=== PATIENT | male | born 1930 | race Caucasian/White ===

== ENCOUNTER 2019-01-20 21:45 | Inpatient (IN) ==
[2019-01-20] MEDS ORDERED: Acetaminophen 325 MG TABLET PO PRN (23:09)
[2019-01-20] MEDS ORDERED: Ondansetron ODT 4 MG TAB.RAPDIS SL PRN (23:33)
[2019-01-21] MEDS ORDERED: Loratadine 10 MG TABLET PO SCH (09:00)
[2019-01-21] MEDS: cephALEXin 500 MG CAPSULE PO SCH ×2 (11:20→19:50)
[2019-01-21] MEDS: Sennosides/Docusate Sodium TABLET PO SCH ×2 (11:20→19:50)
[2019-01-21] MEDS: Gabapentin 300 MG CAPSULE PO SCH ×3 (11:20→19:50)
[2019-01-21] MEDS: Lactulose Oral Soln 20 GM/30 ML UDC PO SCH ×5 (11:20→19:56)
[2019-01-21] MEDS: Cyanocobalamin (B-12) 1,000 MCG TABLET PO SCH (11:20)
[2019-01-21] MEDS: Cholecalciferol (D-3) 1,000 UNIT TABLET PO SCH (11:20)
--- NOTE | 2019-01-21 18:36 | Internal Med History&Physical ---
Date of Encounter: 01/21/19 Time of Encounter: 18:05 Assessment and Plan (1) Compression fx, lumbar spine Current visit: No Status: Acute L2 and L4 compression fractures now status post kyphoplasty. Continue PT and OT intervention. Will give scheduled Tylenol 650 mg every 6 hours. Continue Lidoderm. Qualifiers: Encounter type: initial encounter Lumbar vertebra fracture level: L2 Fracture type: closed Qualified Code(s): S32.020A - Wedge compression fracture of second lumbar vertebra, initial encounter for closed fracture (2) Parkinsons disease Current visit: Yes Status: Acute PT and OT evaluation to be done. (3) Dementia Current visit: Yes Status: Suspected Suspected. MMSE will be done. Qualifiers: Dementia type: unspecified type Dementia behavioral disturbance: without behavioral disturbance Qualified Code(s): F03.90 - Unspecified dementia without behavioral disturbance (4) CAD (coronary artery disease) Current visit: No Status: Chronic Details unknown. Qualifiers: Coronary Disease-Associated Artery/Lesion type: [place] artery [place] vs. transplanted heart: [place] heart Associated angina: without angina Qualified Code(s): I25.10 - Atherosclerotic heart disease of [place] coronary artery without angina pectoris (5) Hypothyroidism Current visit: No Status: Chronic Check TSH in a.m. Qualifiers: Hypothyroidism type: unspecified Qualified Code(s): E03.9 - Hypothyroidism, unspecified (6) Anemia Current visit: No Status: Chronic Anemia testing will be done in a.m. Qualifiers: Anemia type: unspecified type Qualified Code(s): D64.9 - Anemia, unspecified Internal Medicine - H&P: HPI Chief complaint: Compression fractures with kyphoplasty, laminectomy Admitted From: Hospital to Hospital Transfer Plans for Post Hospital Care: Home History of present illness: Mr. Francis is a 88 year old male who was transferred from [facility] ER to [facility] January 14 after a fall home resulted in L2 and L4 compression fractures. He underwent kyphoplasty at [facility] as well as L3-4 laminectomy for severe lumbar stenosis causing neurogenic claudication. He was discharged to [facility] swing bed for ongoing rehabilitation therapy. He is a fair historian. He states he has had shoulder surgery in the past. He denies gout or other bone joint or muscle disorders. Past Med Surg Social Fam HX - Past Medical History Medical history: coronary artery disease, GERD, hyperlipidemia, myocardial infarction, thyroid disease, other Additional medical history: NEUROPATHY Psychiatric history: no psych history - Past Surgical History Surgical History: angioplasty/stent, orthopedic, other Additional surgical history: REPAIR "LOOSE VEIN IN HEART.", HIP REPAIR - Social History Smoking Status: Never smoker Smokeless Tobacco Status: No Alcohol use: none Drug use: none - Family History Mother Living Status: Hx Family Cardiac Disorders: No Father Living Status: Hx Family Cardiac Disorders: Yes Internal Medicine - H&P: Meds Clopidogrel [Plavix] 75 mg PO DAILY 11/16/17 [History] Atorvastatin Calcium [Lipitor] 20 mg PO QPM 07/10/18 [History] Cetirizine HCl [Zyrtec] 10 mg PO DAILY 07/10/18 [History] Ferrous Sulfate [Iron] 325 mg PO TID 07/10/18 [History] Gabapentin [Neurontin] 100 mg PO TID 07/10/18 [History] Levothyroxine [Synthroid] 112 mcg PO 0630 07/10/18 [History] Pantoprazole Sodium [Protonix] 40 mg PO DAILY 07/10/18 [History] Triamcinolone 1 appl TP AD PRN 07/10/18 [History] Acetaminophen [Tylenol] 650 mg PO Q6HR PRN 30 Days #90 tablet 07/15/18 [Rx] Lactulose 10 gm PO BID 30 Days #60 udc 07/15/18 [Rx] DULoxetine [Cymbalta] 20 mg PO DAILY 01/14/19 [History] Allergy/AdvReac Type Severity Reaction Status Date / Time No Known Allergies Allergy Verified 11/16/17 14:33 All Systems PM: A 10-system review of systems was performed and is negative for pertinent findings except as documented above in the HPI. Review of systems: Gen.: He states his weight has been stable for several months Cardiovascular: He reports MA in the past but does not remember details. He denies hypertension heart failure angina DVT or pulmonary embolus. Echocardiogram 07/11/2018 showed LVEF of 70%. No significant valvular abnormality was seen. Interventricular septum and posterior wall thickness measurements were 1.08 and 0.99 cm respectively. E/A ratio was 0.6. Respiratory: He states he smoked minimally in early adulthood. 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 Available records report history of GERD. : He denies hematuria dysuria or kidney stones Neurologic: He denies large distribution strokes or seizures. He has history of neuropathy not otherwise specified. He states he was recently told he has Parkinson's disease. Endocrine: He has hyperlipidemia. The chart reports diagnosis of "disease of thyroid gland" not otherwise specified. There is no known diabetes. Hematology/oncology: He was unaware he had anemia on labs at [facility]. He denies internal malignancies or other blood disorders. Psychiatric: He has feelings of anxiety depression but does not take medication for these. He denies other mental health diagnoses. [place] skeletal: As per history of present illness - Constitutional Vitals: Temp Pulse Resp BP Pulse Ox 98.3 F 80 17 139/85 96 01/21/19 08:26 01/21/19 08:26 01/21/19 08:26 01/21/19 08:26 01/21/19 08:26 Exam: Gen.: He is a well-developed well-nourished male resting in bed who appears in no acute distress. He complains of pain in his low back. HEENT: Head is atraumatic and normal cephalic. Eyes: EOMI. There is no scleral icterus. Mouth: Mucosa is moist. Neck: Supple and nontender. There is no thyromegaly or adenopathy noted. Heart: Regular with occasional ectopics. Lungs: A few scattered rhonchi are heard. No wheezes or inspiratory crackles are heard otherwise. Abdomen: There is a well-healed midline longitudinal abdominal scar. No masses or guarding are noted. Extremities: There is no cyanosis edema or clubbing noted. Dorsalis pedis and posttibial pulses are trace palpable bilaterally. He has he will protectors on bilaterally as well as Allevyn which I did not remove. 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 Neurologic: Mental status: He is talkative and a fair historian. He does not remember some details of his history. He states his age is 87. He does know his date of . Cranial nerves: Smile is symmetric. Forehead wrinkles bilaterally. Tongue protrudes midline. EOMI. Motor: There is no pronator drift. He has cogwheeling and rigidity on passive range of motion's of his arms and wrists. Cerebellar: Finger to nose is intact bilaterally. Skin: Warm and dry. He has surgical bandages over his lower midline spine which I did not remove.
[2019-01-21] MEDS: Acetaminophen 325 MG TABLET PO SCH (19:50)
[2019-01-22] MEDS: Acetaminophen 325 MG TABLET PO SCH ×5 (00:45→23:45)
[2019-01-22 05:35] LABS: Basophils # 0.1 K/mcL (0.0-0.2); Basophils % 1.1 %; Eosinophils # 0.4 K/mcL (0.0-0.6); Eosinophils % 4.9 %; Hematocrit 28.3 % (37.5-50.1); Hemoglobin 9.4 g/dL (12.9-16.9); Immature Granulocytes % 1.1 % (0-4); Lymphocytes # 1.3 K/mcL (0.6-4.6); Lymphocytes % 18.3 %; Mean Corpuscular HGB Conc 33.2 g/dL (31.6-35.5); Mean Corpuscular Hemoglobin 30.8 pg (28.0-33.3); Mean Corpuscular Volume 92.8 fL (83.0-100.0); Mean Platelet Volume 8.3 fL (9.4-12.4); Monocytes # 0.7 K/mcL (0.0-1.3); Monocytes % 9.8 %; Neutrophils # 4.7 K/mcL (1.6-8.9); Platelet Count 295 K/mcL (140-400); Red Blood Count 3.05 M/mcL (4.19-5.50); Red Cell Distribution Width 13.9 % (11.5-14.5); Segmented Neutrophils % 64.8 %
[2019-01-22 06:01] LABS: Alanine Aminotransferase 11 Units/L (7-52); Albumin 3.3 g/dL (3.5-5.7); Alkaline Phosphatase 50 Units/L (34-104); Aspartate Amino Transferase 18 Units/L (13-39); BUN/Creatinine Ratio 26 (6-26); Bilirubin,Total 0.8 mg/dL (0.3-1.0); Blood Urea Nitrogen 16 mg/dL (8-23); Calcium 8.4 mg/dL (8.6-10.3); Carbon Dioxide 30 mEq/L (23-29); Chloride 99 mEq/L (98-107); Globulin 3.3 g/dL (2.4-3.5); Glucose 123 mg/dL (70-105); Osmolality,Calculated 283 (280-300); Sodium 135 mEq/L (136-145); Total Protein 6.6 g/dL (6.4-8.9); eGFR For Non-African Americans > 60 (> 60)
[2019-01-22 06:27] LABS: Thyroid Stimulating Hormone 12.483 mcIU/mL (0.340-5.600)
[2019-01-22 09:45] LABS: % Iron Saturation 16 % (20-55); Iron 37 mcg/dL (65-175); Transferrin 165 mg/dL (203-362)
[2019-01-22] MEDS: Sennosides/Docusate Sodium TABLET PO SCH ×2 (09:55→21:24)
[2019-01-22] MEDS: Gabapentin 300 MG CAPSULE PO SCH ×3 (09:56→21:25)
[2019-01-22] MEDS: Cyanocobalamin (B-12) 1,000 MCG TABLET PO SCH (09:56)
[2019-01-22] MEDS: Cholecalciferol (D-3) 1,000 UNIT TABLET PO SCH (09:56)
[2019-01-22] MEDS: Lactulose Oral Soln 20 GM/30 ML UDC PO SCH ×3 (09:57→21:25)
[2019-01-22 10:03] LABS: Ferritin 496 ng/mL (20-250)
[2019-01-22] MEDS: cephALEXin 500 MG CAPSULE PO SCH ×2 (10:05→21:25)
[2019-01-22 10:08] LABS: Folate 9.7 ng/mL (3.0-16.0)
--- NOTE | 2019-01-22 12:09 | Internal Med Progress Note ---
Date of Encounter: 01/22/19 Time of Encounter: 12:00 - Assessment and plan (1) Compression fx, lumbar spine Current Visit: No Status: Inactive Assessment and plan: January 22. Continue scheduled Tylenol, Lidoderm, and therapy intervention. Qualifiers: Encounter type: initial encounter Lumbar vertebra fracture level: L2 Fracture type: closed Qualified Code(s): S32.020A - Wedge compression fracture of second lumbar vertebra, initial encounter for closed fracture (2) Parkinsons disease Current Visit: Yes Status: Acute Assessment and plan: January 22. PT and OT evaluations have been done. Continue to monitor. (3) Dementia Current Visit: Yes Status: Suspected Assessment and plan: January 22. Awaiting MMSE exam. Qualifiers: Dementia type: unspecified type Dementia behavioral disturbance: without behavioral disturbance Qualified Code(s): F03.90 - Unspecified dementia without behavioral disturbance (4) CAD (coronary artery disease) Current Visit: No Status: Chronic Assessment and plan: January 22. Details unknown. Appears clinically stable. Qualifiers: Coronary Disease-Associated Artery/Lesion type: [place] artery [place] vs. transplanted heart: [place] heart Associated angina: without angina Qualified Code(s): I25.10 - Atherosclerotic heart disease of [place] coronary artery without angina pectoris (5) Hypothyroidism Current Visit: No Status: Chronic Assessment and plan: January 22. TSH elevated at 12.483. Increase Synthroid to 150 g daily. Qualifiers: Hypothyroidism type: unspecified Qualified Code(s): E03.9 - Hypothyroidism, unspecified (6) Anemia Current Visit: No Status: Chronic Assessment and plan: January 22. Anemia testing showed iron 37, transferrin saturation 16%, transferrin 165, ferritin 496, B12 589, and folate 9.7. Start ferrous sulfate with ascorbic acid in a.m. Qualifiers: Anemia type: unspecified type Qualified Code(s): D64.9 - Anemia, unspecified (7) Hypokalemia Current Visit: Yes Status: Acute Assessment and plan: January 22. Potassium level 3.0. Supplemental potassium has been ordered. Etiology of hypokalemia not obvious. Continue to monitor. - Subjective Interval history: January 22. He has no new complaints. - Constitutional Vitals: Temp Pulse Resp BP Pulse Ox 98.0 F 70 18 139/77 98 01/22/19 07:14 01/22/19 07:14 01/22/19 07:14 01/22/19 07:14 01/22/19 07:14 Exam: He is sitting in a chair at bedside resting comfortably. His affect is bright and cheerful. He is generally appropriate in conversation and answers questions accurately. I reviewed his medications and lab results. Internal Medicine: Result - Labs CBC & Chem 7: 01/22/19 05:30 01/22/19 05:30 Labs: Short CBC 01/22/19 Range/Units 05:30 WBC 7.3 (4.3-11.1) K/mcL Hgb 9.4 L (12.9-16.9) g/dL Hct 28.3 L (37.5-50.1) % Plt Count 295 (140-400) K/mcL Neutrophils # 4.7 (1.6-8.9) K/mcL BMP 01/22/19 05:30 Sodium 135 L Potassium 3.0 L Chloride 99 Carbon Dioxide 30 H BUN 16 Creatinine 0.61 L Glucose 123 H Calcium 8.4 L Liver Function 01/22/19 Range/Units 05:30 Total Bilirubin 0.8 (0.3-1.0) mg/dL AST 18 (13-39) Units/L ALT 11 (7-52) Units/L Alkaline Phosphatase 50 (34-104) Units/L Albumin 3.3 L (3.5-5.7) g/dL Consult Discharge Plan - Plan Referrals: NONE,PCP [Primary Care Provider] - 1 week
[2019-01-23 05:36] LABS: Basophils # 0.1 K/mcL (0.0-0.2); Basophils % 0.9 %; Eosinophils # 0.6 K/mcL (0.0-0.6); Eosinophils % 8.1 %; Hematocrit 28.6 % (37.5-50.1); Hemoglobin 9.4 g/dL (12.9-16.9); Immature Granulocytes % 1.1 % (0-4); Lymphocytes # 1.5 K/mcL (0.6-4.6); Lymphocytes % 19.8 %; Mean Corpuscular HGB Conc 32.9 g/dL (31.6-35.5); Mean Corpuscular Hemoglobin 30.6 pg (28.0-33.3); Mean Corpuscular Volume 93.2 fL (83.0-100.0); Mean Platelet Volume 8.7 fL (9.4-12.4); Monocytes # 0.7 K/mcL (0.0-1.3); Monocytes % 9.3 %; Neutrophils # 4.5 K/mcL (1.6-8.9); Platelet Count 358 K/mcL (140-400); Red Blood Count 3.07 M/mcL (4.19-5.50); Red Cell Distribution Width 14.1 % (11.5-14.5); Segmented Neutrophils % 60.8 %
[2019-01-23 05:55] LABS: BUN/Creatinine Ratio 25 (6-26); Blood Urea Nitrogen 17 mg/dL (8-23); Calcium 8.4 mg/dL (8.6-10.3); Carbon Dioxide 29 mEq/L (23-29); Chloride 99 mEq/L (98-107); Glucose 99 mg/dL (70-105); Osmolality,Calculated 280 (280-300); Potassium 3.3 mEq/L (3.5-5.1); Sodium 134 mEq/L (136-145); eGFR For Non-African Americans > 60 (> 60)
[2019-01-23] MEDS: Acetaminophen 325 MG TABLET PO SCH ×4 (06:20→22:42)
[2019-01-23] MEDS: Ascorbic Acid 500 MG TABLET PO SCH (06:20)
[2019-01-23 09:07] LABS: Estimated Average Glucose 123 mg/dl; Hemoglobin A1C 5.9 %
[2019-01-23] MEDS: Lactulose Oral Soln 20 GM/30 ML UDC PO SCH ×3 (10:54→22:38)
[2019-01-23] MEDS: Gabapentin 300 MG CAPSULE PO SCH ×3 (10:55→22:38)
[2019-01-23] MEDS: Sennosides/Docusate Sodium TABLET PO SCH ×2 (10:55→22:38)
[2019-01-23] MEDS: Cyanocobalamin (B-12) 1,000 MCG TABLET PO SCH (10:56)
[2019-01-23] MEDS: Cholecalciferol (D-3) 1,000 UNIT TABLET PO SCH (10:57)
[2019-01-23] MEDS: cephALEXin 500 MG CAPSULE PO SCH ×2 (11:01→22:42)
--- NOTE | 2019-01-23 17:34 | Internal Med Progress Note ---
Date of Encounter: 01/23/19 Time of Encounter: 17:27 - Assessment and plan (1) Compression fx, lumbar spine Current Visit: No Status: Acute Assessment and plan: January 22. Continue scheduled Tylenol, Lidoderm, and therapy intervention. January 23. He has chosen to remain in swing bed rather than transfer to a local SNF. Qualifiers: Encounter type: initial encounter Lumbar vertebra fracture level: L2 Fracture type: closed Qualified Code(s): S32.020A - Wedge compression fracture of second lumbar vertebra, initial encounter for closed fracture (2) Parkinsons disease Current Visit: Yes Status: Acute Assessment and plan: January 22. PT and OT evaluations have been done. Continue to monitor. (3) Dementia Current Visit: Yes Status: Suspected Assessment and plan: January 22. Awaiting MMSE exam. Qualifiers: Dementia type: unspecified type Dementia behavioral disturbance: without behavioral disturbance Qualified Code(s): F03.90 - Unspecified dementia without behavioral disturbance (4) CAD (coronary artery disease) Current Visit: No Status: Chronic Assessment and plan: January 22. Details unknown. Appears clinically stable. Qualifiers: Coronary Disease-Associated Artery/Lesion type: [place] artery [place] vs. transplanted heart: [place] heart Associated angina: without angina Qualified Code(s): I25.10 - Atherosclerotic heart disease of [place] coronary artery without angina pectoris (5) Hypothyroidism Current Visit: No Status: Chronic Assessment and plan: January 22. TSH elevated at 12.483. Increase Synthroid to 150 g daily. Qualifiers: Hypothyroidism type: unspecified Qualified Code(s): E03.9 - Hypothyroidism, unspecified (6) Anemia Current Visit: No Status: Chronic Assessment and plan: January 22. Anemia testing showed iron 37, transferrin saturation 16%, transferri n 165, ferritin 496, B12 589, and folate 9.7. Start ferrous sulfate with ascorbic acid in a.m. Qualifiers: Anemia type: unspecified type Qualified Code(s): D64.9 - Anemia, unspecified (7) Hypokalemia Current Visit: Yes Status: Acute Assessment and plan: January 22. Potassium level 3.0. Supplemental potassium has been ordered. Etiology of hypokalemia not obvious. Continue to monitor. January 23. Recheck labs in a.m. - Subjective Interval history: January 22. He has no new complaints. January 23. He has no new complaints. He states his back pain is slightly worse today. - Constitutional Vitals: Temp Pulse Resp BP Pulse Ox 98.4 F 67 16 145/78 94 01/23/19 07:44 01/23/19 07:44 01/23/19 07:44 01/23/19 07:44 01/23/19 10:03 Exam: He is resting comfortably in bed and appears in no acute distress. His affect is bright and cheerful. I reviewed his medications and lab results. Internal Medicine: Result - Labs CBC & Chem 7: 01/23/19 04:24 01/23/19 04:24 Labs: Short CBC 01/23/19 Range/Units 04:24 WBC 7.4 (4.3-11.1) K/mcL Hgb 9.4 L (12.9-16.9) g/dL Hct 28.6 L (37.5-50.1) % Plt Count 358 (140-400) K/mcL Neutrophils # 4.5 (1.6-8.9) K/mcL BMP 01/23/19 04:24 Sodium 134 L Potassium 3.3 L Chloride 99 Carbon Dioxide 29 BUN 17 Creatinine 0.67 L Glucose 99 Calcium 8.4 L Consult Discharge Plan - Plan Referrals: NONE,PCP [Primary Care Provider] - 1 week
[2019-01-23] MEDS: traZODone 50 MG TABLET PO PRN (22:38)
[2019-01-24 06:41] LABS: Basophils # 0.1 K/mcL (0.0-0.2); Basophils % 0.9 %; Eosinophils # 0.6 K/mcL (0.0-0.6); Eosinophils % 7.3 %; Hematocrit 29.2 % (37.5-50.1); Hemoglobin 9.8 g/dL (12.9-16.9); Immature Granulocytes % 1.3 % (0-4); Lymphocytes # 1.1 K/mcL (0.6-4.6); Lymphocytes % 14.9 %; Mean Corpuscular HGB Conc 33.6 g/dL (31.6-35.5); Mean Corpuscular Hemoglobin 31.2 pg (28.0-33.3); Mean Platelet Volume 8.1 fL (9.4-12.4); Monocytes # 0.7 K/mcL (0.0-1.3); Monocytes % 8.9 %; Platelet Count 360 K/mcL (140-400); Red Blood Count 3.14 M/mcL (4.19-5.50); Red Cell Distribution Width 14.2 % (11.5-14.5); Segmented Neutrophils % 66.7 %
[2019-01-24 07:01] LABS: BUN/Creatinine Ratio 19 (6-26); Blood Urea Nitrogen 13 mg/dL (8-23); Calcium 8.4 mg/dL (8.6-10.3); Carbon Dioxide 26 mEq/L (23-29); Chloride 101 mEq/L (98-107); Glucose 119 mg/dL (70-105); Osmolality,Calculated 281 (280-300); Potassium 3.5 mEq/L (3.5-5.1); Sodium 135 mEq/L (136-145); eGFR For Non-African Americans > 60 (> 60)
[2019-01-24] MEDS: Acetaminophen 325 MG TABLET PO SCH ×3 (07:03→17:06)
[2019-01-24] MEDS: Ascorbic Acid 500 MG TABLET PO SCH (07:04)
[2019-01-24] MEDS: Lactulose Oral Soln 20 GM/30 ML UDC PO SCH ×3 (08:12→21:10)
[2019-01-24] MEDS: Sennosides/Docusate Sodium TABLET PO SCH ×2 (08:13→21:10)
[2019-01-24] MEDS: Gabapentin 300 MG CAPSULE PO SCH ×3 (08:24→21:10)
[2019-01-24] MEDS: Cholecalciferol (D-3) 1,000 UNIT TABLET PO SCH (08:25)
[2019-01-24] MEDS: cephALEXin 500 MG CAPSULE PO SCH ×2 (08:26→21:16)
[2019-01-24] MEDS: Cyanocobalamin (B-12) 1,000 MCG TABLET PO SCH (08:26)
[2019-01-24] MEDS: traZODone 50 MG TABLET PO PRN (21:10)
[2019-01-25] MEDS: Acetaminophen 325 MG TABLET PO SCH ×4 (00:12→17:21)
[2019-01-25] MEDS: Sennosides/Docusate Sodium TABLET PO SCH ×2 (08:00→20:37)
[2019-01-25] MEDS: Gabapentin 300 MG CAPSULE PO SCH ×3 (08:00→20:44)
[2019-01-25] MEDS: Cholecalciferol (D-3) 1,000 UNIT TABLET PO SCH (08:00)
[2019-01-25] MEDS: Cyanocobalamin (B-12) 1,000 MCG TABLET PO SCH (08:00)
[2019-01-25] MEDS: cephALEXin 500 MG CAPSULE PO SCH (08:00)
[2019-01-25] MEDS: Lactulose Oral Soln 20 GM/30 ML UDC PO SCH ×3 (08:01→20:37)
[2019-01-25] MEDS: Ascorbic Acid 500 MG TABLET PO SCH (13:43)
--- NOTE | 2019-01-25 16:34 | Internal Med Progress Note ---
Date of Encounter: 01/25/19 Time of Encounter: 16:27 - Assessment and plan (1) Compression fx, lumbar spine Current Visit: No Status: Acute Assessment and plan: January 22. Continue scheduled Tylenol, Lidoderm, and therapy intervention. January 23. He has chosen to remain in swing bed rather than transfer to a local SNF. Qualifiers: Encounter type: initial encounter Lumbar vertebra fracture level: L2 Fracture type: closed Qualified Code(s): S32.020A - Wedge compression fracture of second lumbar vertebra, initial encounter for closed fracture (2) Parkinsons disease Current Visit: Yes Status: Acute Assessment and plan: January 22. PT and OT evaluations have been done. Continue to monitor. (3) Dementia Current Visit: Yes Status: Suspected Assessment and plan: January 22. Awaiting MMSE exam. January 25. MMSE score was 19/30. B12 level was normal. TSH was elevated and Synthroid dose was increased. Continue to monitor. Qualifiers: Dementia type: unspecified type Dementia behavioral disturbance: without behavioral disturbance Qualified Code(s): F03.90 - Unspecified dementia without behavioral disturbance (4) CAD (coronary artery disease) Current Visit: No Status: Chronic Assessment and plan: January 22. Details unknown. Appears clinically stable. Qualifiers: Coronary Disease-Associated Artery/Lesion type: [place] artery [place] vs. transplanted heart: [place] heart Associated angina: without angina Qualified Code(s): I25.10 - Atherosclerotic heart disease of [place] coronary artery without angina pectoris (5) Hypothyroidism Current Visit: No Status: Chronic Assessment and plan: January 22. TSH elevated at 12.483. Increase Synthroid to 150 g daily. Qualifiers: Hypothyroidism type: unspecified Qualified Code(s): E03.9 - Hypothyroidism, unspecified (6) Anemia Current Visit: No Status: Chronic Assessment and plan: January 22. Anemia testing showed iron 37, transferrin saturation 16%, transferrin 165, ferritin 496, B12 589, and folate 9.7. Start ferrous sulfate with ascorbic acid in a.m. January 25. Hemoglobin improved to 9.8 yesterday. Continue to monitor. Qualifiers: Anemia type: unspecified type Qualified Code(s): D64.9 - Anemia, unspecified (7) Hypokalemia Current Visit: Yes Status: Acute Assessment and plan: January 22. Potassium level 3.0. Supplemental potassium has been ordered. Etiology of hypokalemia not obvious. Continue to monitor. January 23. Recheck labs in a.m. January 25. Potassium normal at 3.5. Discontinue supplemental potassium. - Subjective Interval history: January 22. He has no new complaints. January 23. He has no new complaints. He states his back pain is slightly worse today. January 25. He has no new complaints - Constitutional Vitals: Temp Pulse Resp BP Pulse Ox 98.3 F 69 16 108/65 92 01/25/19 07:25 01/25/19 07:25 01/25/19 07:25 01/25/19 07:25 01/25/19 07:25 Exam: He is sitting on the bedside commode and appears in no acute distress. His affect is bright and cheerful. He is appropriate in conversation. I reviewed his medications and lab results. Internal Medicine: Result - Labs CBC & Chem 7: 01/24/19 06:32 01/24/19 06:32 Consult Discharge Plan - Plan Referrals: NONE,PCP [Primary Care Provider] - 1 week
[2019-01-25] MEDS: traZODone 50 MG TABLET PO PRN (20:44)
[2019-01-26] MEDS: Acetaminophen 325 MG TABLET PO SCH ×4 (02:09→18:28)
[2019-01-26] MEDS: Ascorbic Acid 500 MG TABLET PO SCH (06:16)
[2019-01-26] MEDS: Lactulose Oral Soln 20 GM/30 ML UDC PO SCH ×3 (08:56→21:22)
[2019-01-26] MEDS: Sennosides/Docusate Sodium TABLET PO SCH ×2 (08:57→21:22)
[2019-01-26] MEDS: Cyanocobalamin (B-12) 1,000 MCG TABLET PO SCH (08:57)
[2019-01-26] MEDS: Cholecalciferol (D-3) 1,000 UNIT TABLET PO SCH (08:57)
[2019-01-26] MEDS: Gabapentin 300 MG CAPSULE PO SCH ×3 (08:57→21:23)
[2019-01-27] MEDS: Acetaminophen 325 MG TABLET PO SCH ×5 (00:59→23:50)
[2019-01-27] MEDS: Ascorbic Acid 500 MG TABLET PO SCH (06:08)
[2019-01-27 07:01] LABS: Basophils # 0.1 K/mcL (0.0-0.2); Basophils % 0.9 %; Eosinophils # 0.7 K/mcL (0.0-0.6); Eosinophils % 7.9 %; Hematocrit 30.3 % (37.5-50.1); Hemoglobin 9.8 g/dL (12.9-16.9); Immature Granulocytes % 1.2 % (0-4); Lymphocytes # 1.3 K/mcL (0.6-4.6); Lymphocytes % 16.1 %; Mean Corpuscular HGB Conc 32.3 g/dL (31.6-35.5); Mean Corpuscular Hemoglobin 30.8 pg (28.0-33.3); Mean Corpuscular Volume 95.3 fL (83.0-100.0); Mean Platelet Volume 8.2 fL (9.4-12.4); Monocytes # 0.7 K/mcL (0.0-1.3); Monocytes % 7.9 %; Neutrophils # 5.4 K/mcL (1.6-8.9); Platelet Count 379 K/mcL (140-400); Red Blood Count 3.18 M/mcL (4.19-5.50); Red Cell Distribution Width 14.9 % (11.5-14.5)
[2019-01-27 07:25] LABS: BUN/Creatinine Ratio 27 (6-26); Blood Urea Nitrogen 21 mg/dL (8-23); Calcium 8.5 mg/dL (8.6-10.3); Carbon Dioxide 27 mEq/L (23-29); Chloride 102 mEq/L (98-107); Glucose 103 mg/dL (70-105); Osmolality,Calculated 283 (280-300); Potassium 4.2 mEq/L (3.5-5.1); Sodium 135 mEq/L (136-145); eGFR For Non-African Americans > 60 (> 60)
[2019-01-27] MEDS: Gabapentin 300 MG CAPSULE PO SCH ×3 (08:38→19:58)
[2019-01-27] MEDS: Sennosides/Docusate Sodium TABLET PO SCH (08:38)
[2019-01-27] MEDS: Lactulose Oral Soln 20 GM/30 ML UDC PO SCH (08:38)
[2019-01-27] MEDS: Cyanocobalamin (B-12) 1,000 MCG TABLET PO SCH (08:38)
[2019-01-27] MEDS: Cholecalciferol (D-3) 1,000 UNIT TABLET PO SCH (08:38)
--- NOTE | 2019-01-27 10:52 | Internal Med Progress Note ---
Date of Encounter: 01/27/19 Time of Encounter: 10:44 - Assessment and plan (1) Compression fx, lumbar spine Current Visit: No Status: Acute Assessment and plan: January 22. Continue scheduled Tylenol, Lidoderm, and therapy intervention. January 23. He has chosen to remain in swing bed rather than transfer to a local SNF. Qualifiers: Encounter type: initial encounter Lumbar vertebra fracture level: L2 Fracture type: closed Qualified Code(s): S32.020A - Wedge compression fracture of second lumbar vertebra, initial encounter for closed fracture (2) Parkinsons disease Current Visit: Yes Status: Acute Assessment and plan: January 22. PT and OT evaluations have been done. Continue to monitor. (3) Dementia Current Visit: Yes Status: Chronic Assessment and plan: January 22. Awaiting MMSE exam. January 25. MMSE score was 19/30. B12 level was normal. TSH was elevated and Synthroid dose was increased. Continue to monitor. Qualifiers: Dementia type: unspecified type Dementia behavioral disturbance: without behavioral disturbance Qualified Code(s): F03.90 - Unspecified dementia without behavioral disturbance (4) CAD (coronary artery disease) Current Visit: No Status: Chronic Assessment and plan: January 22. Details unknown. Appears clinically stable. Qualifiers: Coronary Disease-Associated Artery/Lesion type: [place] artery [place] vs. transplanted heart: [place] heart Associated angina: without angina Qualified Code(s): I25.10 - Atherosclerotic heart disease of [place] coronary artery without angina pectoris (5) Hypothyroidism Current Visit: No Status: Chronic Assessment and plan: January 22. TSH elevated at 12.483. Increase Synthroid to 150 g daily. Qualifiers: Hypothyroidism type: unspecified Qualified Code(s): E03.9 - Hypothyroidism, unspecified (6) Anemia Current Visit: No Status: Chronic Assessment and plan: January 22. Anemia testing showed iron 37, transferrin saturation 16%, transferrin 165, ferritin 496, B12 589, and folate 9.7. Start ferrous sulfate with ascorbic acid in a.m. January 25. Hemoglobin improved to 9.8 yesterday. Continue to monitor. January 27. Hemoglobin stable at 9.8. Continue ferrous sulfate with ascorbic acid. Qualifiers: Anemia type: unspecified type Qualified Code(s): D64.9 - Anemia, unspecified (7) Hypokalemia Current Visit: Yes Status: Acute Assessment and plan: January 22. Potassium level 3.0. Supplemental potassium has been ordered. Etiology of hypokalemia not obvious. Continue to monitor. January 23. Recheck labs in a.m. January 25. Potassium normal at 3.5. Discontinue supplemental potassium. January 27. Potassium normal at 4.2. (8) Diarrhea Current Visit: Yes Status: Acute Assessment and plan: January 27. Decrease senna/docusate and lactulose to daily dose. Qualifiers: Diarrhea type: unspecified type Qualified Code(s): R19.7 - Diarrhea, unspecified - Subjective Interval history: January 22. He has no new complaints. January 23. He has no new complaints. He states his back pain is slightly worse today. January 25. He has no new complaints January 27. He has no new complaints and feels well. Reports minimal back pain now. - Constitutional Vitals: Temp Pulse Resp BP Pulse Ox 98.1 F 66 17 121/73 95 01/27/19 07:04 01/27/19 07:04 01/27/19 07:04 01/27/19 07:04 01/27/19 07:04 Exam: He is resting comfortably in bed and appears in no acute distress. His affect is bright and cheerful. I reviewed his medications and lab results. Internal Medicine: Result - Labs CBC & Chem 7: 01/27/19 06:40 01/27/19 06:40 Labs: Short CBC 01/27/19 Range/Units 06:40 WBC 8.2 (4.3-11.1) K/mcL Hgb 9.8 L (12.9-16.9) g/dL Hct 30.3 L (37.5-50.1) % Plt Count 379 (140-400) K/mcL Neutrophils # 5.4 (1.6-8.9) K/mcL BMP 01/27/19 06:40 Sodium 135 L Potassium 4.2 Chloride 102 Carbon Dioxide 27 BUN 21 Creatinine 0.78 Glucose 103 Calcium 8.5 L Consult Discharge Plan - Plan Referrals: NONE,PCP [Primary Care Provider] - 1 week
[2019-01-27] MEDS ORDERED: 0.9 % Sodium Chloride 1,000 ML IVC ONE (17:10)
[2019-01-27] MEDS: Cefepime HCl 2,000 MG in Water for inj. (sterile) 20 ML 20 ML IVP SCH (18:27)
[2019-01-27] MEDS ORDERED: 0.9 % Sodium Chloride 500 ML IVC ONE (19:42)
[2019-01-27 19:56] LABS: Bilirubin,Urine Negative (Negative); Blood,Urine Large (Negative); Clarity,Urine Turbid (Clear); Color,Urine Dark Yellow (Yellow); Glucose,Urine (UA) Normal (Normal); Ketones,Urine Trace mg/dL (Negative); Leukocyte Esterase,Urine Small (Negative); Nitrite,Urine Positive (Negative); PH,Urine 5.5 pH Units (5.0-8.0); Protein,Urine >=300 mg/dL (Neg-Trace); Urobilinogen,Urine Normal (Normal)
[2019-01-27 20:09] LABS: Bacteria,Urine Many per hpf (None-Few); Mucus,Urine Moderate (Few); WBC,Urine TNTC per hpf (0-3)
[2019-01-27 20:11] LABS: Calcium Oxalate Crystals,Urine Present; Granular Casts,Urine Few per lpf (None Seen); Hyaline Casts,Urine Few per lpf (None-Few); RBC,Urine TNTC per hpf (0-3)
[2019-01-27 20:38] LABS: Squamous Epithelial Cell,Urine Many per lpf (None-Few)
[2019-01-27 20:41] LABS: Renal Epithelial Cells,Urine Moderate per hpf (None-Few)
[2019-01-27] MEDS ORDERED: 0.9 % Sodium Chloride 1,000 ML IV SCH (20:45)
[2019-01-28] MEDS: Ascorbic Acid 500 MG TABLET PO SCH (06:00)
[2019-01-28] MEDS: Cefepime HCl 2,000 MG in Water for inj. (sterile) 20 ML 20 ML IVP SCH ×2 (06:01→18:27)
[2019-01-28] MEDS: Acetaminophen 325 MG TABLET PO SCH ×3 (06:01→18:26)
[2019-01-28] MEDS ORDERED: Vancomycin (wt based) 1,000 MG VIAL IVPB SCH (09:00)
[2019-01-28] MEDS: Cyanocobalamin (B-12) 1,000 MCG TABLET PO SCH (09:19)
[2019-01-28] MEDS: Gabapentin 300 MG CAPSULE PO SCH ×3 (09:19→21:32)
[2019-01-28] MEDS: Sennosides/Docusate Sodium TABLET PO SCH (09:19)
[2019-01-28] MEDS: Lactulose Oral Soln 20 GM/30 ML UDC PO SCH (09:19)
[2019-01-28] MEDS: Cholecalciferol (D-3) 1,000 UNIT TABLET PO SCH (09:19)
[2019-01-29] MEDS: Acetaminophen 325 MG TABLET PO SCH ×4 (00:59→16:35)
[2019-01-29 06:17] LABS: Basophils # 0.1 K/mcL (0.0-0.2); Basophils % 0.5 %; Eosinophils # 0.6 K/mcL (0.0-0.6); Eosinophils % 4.5 %; Hematocrit 28.3 % (37.5-50.1); Hemoglobin 9.1 g/dL (12.9-16.9); Immature Granulocytes % 0.5 % (0-4); Lymphocytes # 1.2 K/mcL (0.6-4.6); Lymphocytes % 8.6 %; Mean Corpuscular HGB Conc 32.2 g/dL (31.6-35.5); Mean Corpuscular Hemoglobin 31.1 pg (28.0-33.3); Mean Corpuscular Volume 96.6 fL (83.0-100.0); Mean Platelet Volume 8.7 fL (9.4-12.4); Monocytes # 0.8 K/mcL (0.0-1.3); Monocytes % 5.6 %; Platelet Count 343 K/mcL (140-400); Red Blood Count 2.93 M/mcL (4.19-5.50); Red Cell Distribution Width 14.9 % (11.5-14.5); Segmented Neutrophils % 80.3 %
[2019-01-29 06:23] LABS: Neutrophils # 11.3 K/mcL (1.6-8.9)
[2019-01-29 06:37] LABS: BUN/Creatinine Ratio 31 (6-26); Blood Urea Nitrogen 20 mg/dL (8-23); Calcium 8.3 mg/dL (8.6-10.3); Carbon Dioxide 28 mEq/L (23-29); Chloride 102 mEq/L (98-107); Glucose 114 mg/dL (70-105); Osmolality,Calculated 281 (280-300); Potassium 3.9 mEq/L (3.5-5.1); Sodium 134 mEq/L (136-145); eGFR For Non-African Americans > 60 (> 60)
[2019-01-29] MEDS: Cefepime HCl 2,000 MG in Water for inj. (sterile) 20 ML 20 ML IVP SCH ×2 (06:48→16:31)
[2019-01-29] MEDS: Ascorbic Acid 500 MG TABLET PO SCH (06:48)
--- NOTE | 2019-01-29 10:27 | Internal Med Progress Note ---
Date of Encounter: 01/29/19 Time of Encounter: 10:19 - Assessment and plan (1) Compression fx, lumbar spine Current Visit: No Status: Acute Assessment and plan: January 22. Continue scheduled Tylenol, Lidoderm, and therapy intervention. January 23. He has chosen to remain in swing bed rather than transfer to a local SNF. Qualifiers: Encounter type: initial encounter Lumbar vertebra fracture level: L2 Fracture type: closed Qualified Code(s): S32.020A - [place]ge compression fracture of second lumbar vertebra, initial encounter for closed fracture (2) Parkinsons disease Current Visit: Yes Status: Acute Assessment and plan: January 22. PT and OT evaluations have been done. Continue to monitor. (3) Dementia Current Visit: Yes Status: Chronic Assessment and plan: January 22. Awaiting MMSE exam. January 25. MMSE score was 19/30. B12 level was normal. TSH was elevated and Synthroid dose was increased. Continue to monitor. Qualifiers: Dementia type: unspecified type Dementia behavioral disturbance: without behavioral disturbance Qualified Code(s): F03.90 - Unspecified dementia without behavioral disturbance (4) CAD (coronary artery disease) Current Visit: No Status: Chronic Assessment and plan: January 22. Details unknown. Appears clinically stable. Qualifiers: Coronary Disease-Associated Artery/Lesion type: [place] artery [place] vs. transplanted heart: [place] heart Associated angina: without angina Qualified Code(s): I25.10 - Atherosclerotic heart disease of [place] coronary artery without angina pectoris (5) Hypothyroidism Current Visit: No Status: Chronic Assessment and plan: January 22. TSH elevated at 12.483. Increase Synthroid to 150 g daily. Qualifiers: Hypothyroidism type: unspecified Qualified Code(s): E03.9 - Hypothyroidism, unspecified (6) Anemia Current Visit: No Status: Chronic Assessment and plan: January 22. Anemia testing showed iron 37, transferrin saturation 16%, transferrin 165, ferritin 496, B12 589, and folate 9.7. Start ferrous sulfate with ascorbic acid in a.m. January 25. Hemoglobin improved to 9.8 yesterday. Continue to monitor. January 27. Hemoglobin stable at 9.8. Continue ferrous sulfate with ascorbic acid. January 29. Hemoglobin has decreased to 9.1. Continue to monitor. Qualifiers: Anemia type: unspecified type Qualified Code(s): D64.9 - Anemia, unspecified (7) Hypokalemia Current Visit: Yes Status: Acute Assessment and plan: January 22. Potassium level 3.0. Supplemental potassium has been ordered. Etiology of hypokalemia not obvious. Continue to monitor. January 23. Recheck labs in a.m. January 25. Potassium normal at 3.5. Discontinue supplemental potassium. January 27. Potassium normal at 4.2. January 29. Potassium level remains normal at 3.9. Continue to monitor. (8) Diarrhea Current Visit: Yes Status: Acute Assessment and plan: January 27. Decrease senna/docusate and lactulose to daily dose. Qualifiers: Diarrhea type: unspecified type Qualified Code(s): R19.7 - Diarrhea, unspecified (9) Leukocytosis Current Visit: Yes Status: Acute Assessment and plan: January 29. Etiology not determined. Continue empiric cefepime and vancomycin. Recheck labs in a.m. Qualifiers: Leukocytosis type: unspecified Qualified Code(s): D72.829 - Elevated white blood cell count, unspecified - Subjective Interval history: January 22. He has no new complaints. January 23. He has no new complaints. He states his back pain is slightly worse today. January 25. He has no new complaints January 27. He has no new complaints and feels well. Reports minimal back pain now. January 29. He has no new complaints and feels well. He denies pain or dyspnea. He states he wishes to go home. - Constitutional Vitals: Temp Pulse Resp BP Pulse Ox 98.3 F 81 18 111/67 94 01/29/19 06:53 01/29/19 06:53 01/29/19 06:53 01/29/19 06:53 01/29/19 06:53 Exam: He is resting comfortably in a chair at bedside and appears in no acute distress. His affect is overall cheerful. Incisions of his low back show adequate healing. Extremities show trace edema bilaterally. I reviewed his medications and lab results. Internal Medicine: Result - Labs CBC & Chem 7: 01/29/19 05:43 01/29/19 05:43 Labs: Short CBC 01/29/19 Range/Units 05:43 WBC 14.1 H D (4.3-11.1) K/mcL Hgb 9.1 L (12.9-16.9) g/dL Hct 28.3 L (37.5-50.1) % Plt Count 343 (140-400) K/mcL Neutrophils # 11.3 H (1.6-8.9) K/mcL BMP 01/29/19 05:43 Sodium 134 L Potassium 3.9 Chloride 102 Carbon Dioxide 28 BUN 20 Creatinine 0.64 L Glucose 114 H Calcium 8.3 L Consult Discharge Plan - Plan Referrals: NONE,PCP [Primary Care Provider] - 1 week
[2019-01-29] MEDS: Cholecalciferol (D-3) 1,000 UNIT TABLET PO SCH (10:56)
[2019-01-29] MEDS: Sennosides/Docusate Sodium TABLET PO SCH (10:56)
[2019-01-29] MEDS: Lactulose Oral Soln 20 GM/30 ML UDC PO SCH (10:56)
[2019-01-29] MEDS: Cyanocobalamin (B-12) 1,000 MCG TABLET PO SCH (10:56)
[2019-01-29] MEDS: Gabapentin 300 MG CAPSULE PO SCH ×3 (10:56→21:40)
[2019-01-29] MEDS: Loratadine 10 MG TABLET PO PRN (16:36)
[2019-01-30] MEDS: Acetaminophen 325 MG TABLET PO SCH ×4 (00:08→17:00)
[2019-01-30 05:27] LABS: Basophils # 0.1 K/mcL (0.0-0.2); Basophils % 0.5 %; Eosinophils # 0.6 K/mcL (0.0-0.6); Eosinophils % 6.6 %; Hematocrit 27.8 % (37.5-50.1); Hemoglobin 8.9 g/dL (12.9-16.9); Immature Granulocytes % 0.8 % (0-4); Lymphocytes # 1.2 K/mcL (0.6-4.6); Lymphocytes % 12.9 %; Mean Corpuscular Hemoglobin 30.6 pg (28.0-33.3); Mean Corpuscular Volume 95.5 fL (83.0-100.0); Mean Platelet Volume 8.7 fL (9.4-12.4); Monocytes # 0.7 K/mcL (0.0-1.3); Neutrophils # 6.7 K/mcL (1.6-8.9); Platelet Count 371 K/mcL (140-400); Red Blood Count 2.91 M/mcL (4.19-5.50); Red Cell Distribution Width 14.6 % (11.5-14.5); Segmented Neutrophils % 72.2 %
[2019-01-30] MEDS: Ascorbic Acid 500 MG TABLET PO SCH (05:39)
[2019-01-30] MEDS: Cefepime HCl 2,000 MG in Water for inj. (sterile) 20 ML 20 ML IVP SCH ×2 (05:41→16:59)
[2019-01-30 05:51] LABS: BUN/Creatinine Ratio 31 (6-26); Blood Urea Nitrogen 18 mg/dL (8-23); Calcium 8.3 mg/dL (8.6-10.3); Carbon Dioxide 27 mEq/L (23-29); Chloride 101 mEq/L (98-107); Glucose 101 mg/dL (70-105); Osmolality,Calculated 280 (280-300); Potassium 3.4 mEq/L (3.5-5.1); Sodium 134 mEq/L (136-145); eGFR For Non-African Americans > 60 (> 60)
[2019-01-30] MEDS: Sennosides/Docusate Sodium TABLET PO SCH (10:50)
[2019-01-30] MEDS: Lactulose Oral Soln 20 GM/30 ML UDC PO SCH (10:50)
[2019-01-30] MEDS: Cholecalciferol (D-3) 1,000 UNIT TABLET PO SCH (10:50)
[2019-01-30] MEDS: Gabapentin 300 MG CAPSULE PO SCH ×3 (10:50→20:56)
[2019-01-30] MEDS: Cyanocobalamin (B-12) 1,000 MCG TABLET PO SCH (10:50)
[2019-01-30] MEDS: Loratadine 10 MG TABLET PO PRN (13:28)
[2019-01-30] MEDS: traZODone 50 MG TABLET PO PRN (20:56)
[2019-01-31] MEDS: Cefepime HCl 2,000 MG in Water for inj. (sterile) 20 ML 20 ML IVP SCH ×2 (06:09→17:03)
[2019-01-31] MEDS: Acetaminophen 325 MG TABLET PO SCH ×5 (06:09→23:43)
[2019-01-31] MEDS: Ascorbic Acid 500 MG TABLET PO SCH (06:10)
[2019-01-31] MEDS: Cholecalciferol (D-3) 1,000 UNIT TABLET PO SCH (09:55)
[2019-01-31] MEDS: Loratadine 10 MG TABLET PO PRN (09:55)
[2019-01-31] MEDS: Cyanocobalamin (B-12) 1,000 MCG TABLET PO SCH (09:56)
[2019-01-31] MEDS: Gabapentin 300 MG CAPSULE PO SCH ×3 (09:56→21:17)
[2019-01-31] MEDS: Sennosides/Docusate Sodium TABLET PO SCH (09:56)
[2019-01-31] MEDS: Lactulose Oral Soln 20 GM/30 ML UDC PO SCH (09:56)
--- NOTE | 2019-01-31 12:44 | Internal Med Progress Note ---
Date of Encounter: 01/31/19 Time of Encounter: 12:35 - Assessment and plan (1) Compression fx, lumbar spine Current Visit: No Status: Acute Assessment and plan: January 22. Continue scheduled Tylenol, Lidoderm, and therapy intervention. January 23. He has chosen to remain in swing bed rather than transfer to a local SNF. Qualifiers: Encounter type: initial encounter Lumbar vertebra fracture level: L2 Fracture type: closed Qualified Code(s): S32.020A - Wedge compression fracture of second lumbar vertebra, initial encounter for closed fracture (2) Parkinsons disease Current Visit: Yes Status: Acute Assessment and plan: January 22. PT and OT evaluations have been done. Continue to monitor. (3) Dementia Current Visit: Yes Status: Chronic Assessment and plan: January 22. Awaiting MMSE exam. January 25. MMSE score was 19/30. B12 level was normal. TSH was elevated and Synthroid dose was increased. Continue to monitor. Qualifiers: Dementia type: unspecified type Dementia behavioral disturbance: without behavioral disturbance Qualified Code(s): F03.90 - Unspecified dementia without behavioral disturbance (4) CAD (coronary artery disease) Current Visit: No Status: Chronic Assessment and plan: January 22. Details unknown. Appears clinically stable. Qualifiers: Coronary Disease-Associated Artery/Lesion type: [place] artery [place] vs. transplanted heart: [place] heart Associated angina: without angina Qualified Code(s): I25.10 - Atherosclerotic heart disease of [place] coronary artery without angina pectoris (5) Hypothyroidism Current Visit: No Status: Chronic Assessment and plan: January 22. TSH elevated at 12.483. Increase Synthroid to 150 g daily. Qualifiers: Hypothyroidism type: unspecified Qualified Code(s): E03.9 - Hypothyroidism, unspecified (6) Anemia Current Visit: No Status: Chronic Assessment and plan: January 22. Anemia testing showed iron 37, transferrin saturation 16%, transferrin 165, ferritin 496, B12 589, and folate 9.7. Start ferrous sulfate with ascorbic acid in a.m. January 25. Hemoglobin improved to 9.8 yesterday. Continue to monitor. January 27. Hemoglobin stable at 9.8. Continue ferrous sulfate with ascorbic acid. January 29. Hemoglobin has decreased to 9.1. Continue to monitor. January 31. Hemoglobin has decreased further to 8.9. He denies visible hematuria. Continue ferrous sulfate with ascorbic acid. Qualifiers: Anemia type: unspecified type Qualified Code(s): D64.9 - Anemia, unspecified (7) Hypokalemia Current Visit: Yes Status: Acute Assessment and plan: January 22. Potassium level 3.0. Supplemental potassium has been ordered. Etiology of hypokalemia not obvious. Continue to monitor. January 23. Recheck labs in a.m. January 25. Potassium normal at 3.5. Discontinue supplemental potassium. January 27. Potassium normal at 4.2. January 29. Potassium level remains normal at 3.9. Continue to monitor. January 30. Potassium decreased to 3.4 yesterday. Start supplemental potassium and continue to monitor labs. (8) Diarrhea Current Visit: Yes Status: Acute Assessment and plan: January 27. Decrease senna/docusate and lactulose to daily dose. January 31. Staff still documenting significant stool. Discontinue lactulose and change senna/docusate to prn. Qualifiers: Diarrhea type: unspecified type Qualified Code(s): R19.7 - Diarrhea, unspecified (9) Leukocytosis Current Visit: Yes Status: Acute Assessment and plan: January 29. Etiology not determined. Continue empiric cefepime and vancomycin. Recheck labs in a.m. January 31. Leukocytosis and left shift resolved. Recheck UA. Continue antibiotics and probiotic. Qualifiers: Leukocytosis type: unspecified Qualified Code(s): D72.829 - Elevated white blood cell count, unspecified (10) Hematuria Current Visit: Yes Status: Acute Assessment and plan: January 31. UA on 01/27/2019 showed TNTC RBC and WBC. Recheck in a.m. Qualifiers: Hematuria type: unspecified type Qualified Code(s): R31.9 - Hematuria, unspecified - Subjective Interval history: January 22. He has no new complaints. January 23. He has no new complaints. He states his back pain is slightly worse today. January 25. He has no new complaints January 27. He has no new complaints and feels well. Reports minimal back pain now. January 29. He has no new complaints and feels well. He denies pain or dyspnea. He states he wishes to go home. January 31. He has no new complaints and feels well. He feels he is getting stronger. He anticipates going on a day pass 02/02/2019. - Constitutional Vitals: Temp Pulse Resp BP Pulse Ox 98.2 F 71 18 120/70 96 01/31/19 06:58 01/31/19 06:58 01/31/19 06:58 01/31/19 06:58 01/31/19 09:19 Exam: He is resting comfortably in a chair at bedside and appears in no acute distress. His affect is bright and cheerful. I reviewed his medications and lab results. Internal Medicine: Result - Labs CBC & Chem 7: 01/30/19 04:25 01/30/19 04:25 - VTE Documentation of Mechanical Device: Graduated compression elastic hosiery Consult Discharge Plan - Plan Referrals: NONE,PCP [Primary Care Provider] - 1 week
[2019-01-31] MEDS ORDERED: Sennosides/Docusate Sodium TABLET PO PRN (12:49)
[2019-02-01] MEDS: Acetaminophen 325 MG TABLET PO SCH ×4 (05:51→23:51)
[2019-02-01] MEDS: Ascorbic Acid 500 MG TABLET PO SCH (05:51)
[2019-02-01] MEDS: Cefepime HCl 2,000 MG in Water for inj. (sterile) 20 ML 20 ML IVP SCH ×2 (05:51→17:05)
[2019-02-01 06:39] LABS: Basophils # 0.1 K/mcL (0.0-0.2); Basophils % 1.2 %; Eosinophils # 0.6 K/mcL (0.0-0.6); Eosinophils % 9.9 %; Hematocrit 27.4 % (37.5-50.1); Hemoglobin 8.8 g/dL (12.9-16.9); Immature Granulocytes % 0.7 % (0-4); Lymphocytes # 1.1 K/mcL (0.6-4.6); Lymphocytes % 19.3 %; Mean Corpuscular HGB Conc 32.1 g/dL (31.6-35.5); Mean Corpuscular Hemoglobin 30.4 pg (28.0-33.3); Mean Corpuscular Volume 94.8 fL (83.0-100.0); Mean Platelet Volume 8.1 fL (9.4-12.4); Monocytes # 0.6 K/mcL (0.0-1.3); Monocytes % 10.1 %; Neutrophils # 3.3 K/mcL (1.6-8.9); Platelet Count 357 K/mcL (140-400); Red Blood Count 2.89 M/mcL (4.19-5.50); Red Cell Distribution Width 14.6 % (11.5-14.5); Segmented Neutrophils % 58.8 %
[2019-02-01 06:57] LABS: Phosphorous 2.9 mg/dL (2.7-4.5)
[2019-02-01] MEDS: Cyanocobalamin (B-12) 1,000 MCG TABLET PO SCH (08:25)
[2019-02-01] MEDS: Gabapentin 300 MG CAPSULE PO SCH ×3 (08:25→21:08)
[2019-02-01] MEDS: Cholecalciferol (D-3) 1,000 UNIT TABLET PO SCH (08:25)
[2019-02-01 14:13] LABS: Bilirubin,Urine Negative (Negative); Blood,Urine Negative (Negative); Clarity,Urine Slightly Cloudy (Clear); Color,Urine Yellow (Yellow); Glucose,Urine (UA) Normal (Normal); Ketones,Urine Trace mg/dL (Negative); Leukocyte Esterase,Urine Small (Negative); Nitrite,Urine Negative (Negative); Protein,Urine Trace mg/dL (Neg-Trace); Specific Gravity,Urine 1.025 (1.010-1.025); Urobilinogen,Urine Normal (Normal)
[2019-02-01 15:12] LABS: Squamous Epithelial Cell,Urine Few per lpf (None-Few); WBC,Urine 30-50 per hpf (0-3)
[2019-02-01 15:13] LABS: Bacteria,Urine Many per hpf (None-Few); Granular Casts,Urine Few per lpf (None Seen); Hyaline Casts,Urine Few per lpf (None-Few); Mucus,Urine Moderate (Few); RBC,Urine 0-3 per hpf (0-3)
[2019-02-02] MEDS: Ascorbic Acid 500 MG TABLET PO SCH (06:28)
[2019-02-02] MEDS: Cefepime HCl 2,000 MG in Water for inj. (sterile) 20 ML 20 ML IVP SCH ×2 (06:28→20:12)
[2019-02-02] MEDS: Acetaminophen 325 MG TABLET PO SCH ×4 (06:28→23:52)
[2019-02-02] MEDS: Gabapentin 300 MG CAPSULE PO SCH ×3 (08:32→20:13)
[2019-02-02] MEDS: Cholecalciferol (D-3) 1,000 UNIT TABLET PO SCH (08:32)
[2019-02-02] MEDS: Cyanocobalamin (B-12) 1,000 MCG TABLET PO SCH (08:32)
[2019-02-02] MEDS: traZODone 50 MG TABLET PO PRN (20:13)
[2019-02-03] MEDS: Acetaminophen 325 MG TABLET PO SCH ×3 (05:32→17:27)
[2019-02-03] MEDS: Ascorbic Acid 500 MG TABLET PO SCH (05:33)
[2019-02-03 06:44] LABS: Basophils % 0.6 %; Eosinophils # 0.3 K/mcL (0.0-0.6); Eosinophils % 6.5 %; Hematocrit 29.8 % (37.5-50.1); Hemoglobin 9.4 g/dL (12.9-16.9); Immature Granulocytes % 0.6 % (0-4); Lymphocytes # 0.5 K/mcL (0.6-4.6); Lymphocytes % 9.5 %; Mean Corpuscular HGB Conc 31.5 g/dL (31.6-35.5); Mean Corpuscular Hemoglobin 30.3 pg (28.0-33.3); Mean Corpuscular Volume 96.1 fL (83.0-100.0); Mean Platelet Volume 8.2 fL (9.4-12.4); Monocytes # 0.6 K/mcL (0.0-1.3); Monocytes % 10.9 %; Neutrophils # 3.6 K/mcL (1.6-8.9); Platelet Count 305 K/mcL (140-400); Red Cell Distribution Width 14.8 % (11.5-14.5); Segmented Neutrophils % 71.9 %
[2019-02-03 07:10] LABS: BUN/Creatinine Ratio 15 (6-26); Blood Urea Nitrogen 10 mg/dL (8-23); Calcium 8.7 mg/dL (8.6-10.3); Carbon Dioxide 30 mEq/L (23-29); Chloride 100 mEq/L (98-107); Glucose 123 mg/dL (70-105); Osmolality,Calculated 282 (280-300); Potassium 3.6 mEq/L (3.5-5.1); Sodium 136 mEq/L (136-145); eGFR For Non-African Americans > 60 (> 60)
[2019-02-03] MEDS: Gabapentin 300 MG CAPSULE PO SCH ×3 (09:26→21:20)
[2019-02-03] MEDS: Cholecalciferol (D-3) 1,000 UNIT TABLET PO SCH (09:27)
[2019-02-03] MEDS: Cefepime HCl 2,000 MG in Water for inj. (sterile) 20 ML 20 ML IVP SCH (09:27)
[2019-02-03] MEDS: Cyanocobalamin (B-12) 1,000 MCG TABLET PO SCH (09:27)
--- NOTE | 2019-02-03 11:03 | Internal Med Progress Note ---
Date of Encounter: 02/03/19 Time of Encounter: 10:55 - Assessment and plan (1) Compression fx, lumbar spine Current Visit: No Status: Acute Assessment and plan: January 22. Continue scheduled Tylenol, Lidoderm, and therapy intervention. January 23. He has chosen to remain in swing bed rather than transfer to a local SNF. February 03. Anticipate discharge home 02/05/2019. Qualifiers: Encounter type: initial encounter Lumbar vertebra fracture level: L2 Fracture type: closed Qualified Code(s): S32.020A - Wedge compression fracture of second lumbar vertebra, initial encounter for closed fracture (2) Parkinsons disease Current Visit: Yes Status: Acute Assessment and plan: January 22. PT and OT evaluations have been done. Continue to monitor. (3) Dementia Current Visit: Yes Status: Chronic Assessment and plan: January 22. Awaiting MMSE exam. January 25. MMSE score was 19/30. B12 level was normal. TSH was elevated and S ynthroid dose was increased. Continue to monitor. Qualifiers: Dementia type: unspecified type Dementia behavioral disturbance: without behavioral disturbance Qualified Code(s): F03.90 - Unspecified dementia without behavioral disturbance (4) CAD (coronary artery disease) Current Visit: No Status: Chronic Assessment and plan: January 22. Details unknown. Appears clinically stable. Qualifiers: Coronary Disease-Associated Artery/Lesion type: [place] artery [place] vs. transplanted heart: [place] heart Associated angina: without angina Qualified Code(s): I25.10 - Atherosclerotic heart disease of [place] coronary artery without angina pectoris (5) Hypothyroidism Current Visit: No Status: Chronic Assessment and plan: January 22. TSH elevated at 12.483. Increase Synthroid to 150 g daily. Qualifiers: Hypothyroidism type: unspecified Qualified Code(s): E03.9 - Hypothyroidism, unspecified (6) Anemia Current Visit: No Status: Chronic Assessment and plan: January 22. Anemia testing showed iron 37, transferrin saturation 16%, transferrin 165, ferritin 496, B12 589, and folate 9.7. Start ferrous sulfate with ascorbic acid in a.m. January 25. Hemoglobin improved to 9.8 yesterday. Continue to monitor. January 27. Hemoglobin stable at 9.8. Continue ferrous sulfate with ascorbic acid. January 29. Hemoglobin has decreased to 9.1. Continue to monitor. January 31. Hemoglobin has decreased further to 8.9. He denies visible hematuria. Continue ferrous sulfate with ascorbic acid. February 03. Hemoglobin improved to 9.4. Continue ferrous sulfate with ascorbic acid. Qualifiers: Anemia type: unspecified type Qualified Code(s): D64.9 - Anemia, unspecified (7) Hypokalemia Current Visit: Yes Status: Acute Assessment and plan: January 22. Potassium level 3.0. Supplemental potassium has been ordered. Etiology of hypokalemia not obvious. Continue to monitor. January 23. Recheck labs in a.m. January 25. Potassium normal at 3.5. Discontinue supplemental potassium. January 27. Potassium normal at 4.2. January 29. Potassium level remains normal at 3.9. Continue to monitor. January 30. Potassium decreased to 3.4 yesterday. Start supplemental potassium and continue to monitor labs. February 03. Potassium normal at 3.6. Continue supplemental potassium. (8) Diarrhea Current Visit: Yes Status: Acute Assessment and plan: January 27. Decrease senna/docusate and lactulose to daily dose. January 31. Staff still documenting significant stool. Discontinue lactulose and change senna/docusate to prn. February 03. Resolved. Qualifiers: Diarrhea type: unspecified type Qualified Code(s): R19.7 - Diarrhea, unspecified (9) Leukocytosis Current Visit: Yes Status: Acute Assessment and plan: January 29. Etiology not determined. Continue empiric cefepime and vancomycin. Recheck labs in a.m. January 31. Leukocytosis and left shift resolved. Recheck UA. Continue antibiotics and probiotic. February 03. Remains resolved. Discontinue antibiotic and probiotic. Qualifiers: Leukocytosis type: unspecified Qualified Code(s): D72.829 - Elevated white blood cell count, unspecified (10) Hematuria Current Visit: Yes Status: Acute Assessment and plan: January 31. UA on 01/27/2019 showed TNTC RBC and WBC. Recheck in a.m. February 03. Resolved on UA done 02/01/2019. Qualifiers: Hematuria type: unspecified type Qualified Code(s): R31.9 - Hematuria, unspecified - Subjective Interval history: January 22. He has no new complaints. January 23. He has no new complaints. He states his back pain is slightly worse today. January 25. He has no new complaints January 27. He has no new complaints and feels well. Reports minimal back pain now. January 29. He has no new complaints and feels well. He denies pain or dyspnea. He states he wishes to go home. January 31. He has no new complaints and feels well. He feels he is getting stronger. He anticipates going on a day pass 02/02/2019. February 03. He has no new complaints and feels well. He had no difficulty while 00F on day pass yesterday. - Constitutional Vitals: Temp Pulse Resp BP Pulse Ox 99.8 F H 93 18 126/70 91 02/03/19 07:02 02/03/19 07:02 02/03/19 07:02 02/03/19 07:02 02/03/19 07:02 Exam: He is resting comfortably in a chair at bedside and appears in no acute distress. His affect is bright and cheerful. I reviewed his medications and lab results. Internal Medicine: Result - Labs CBC & Chem 7: 02/03/19 06:05 02/03/19 06:05 Labs: Short CBC 02/03/19 Range/Units 06:05 WBC 5.1 (4.3-11.1) K/mcL Hgb 9.4 L (12.9-16.9) g/dL Hct 29.8 L (37.5-50.1) % Plt Count 305 (140-400) K/mcL Neutrophils # 3.6 (1.6-8.9) K/mcL BMP 02/03/19 06:05 Sodium 136 Potassium 3.6 Chloride 100 Carbon Dioxide 30 H BUN 10 Creatinine 0.67 L Glucose 123 H Calcium 8.7 - VTE Documentation of Mechanical Device: Graduated compression elastic hosiery Consult Discharge Plan - Plan Referrals: NONE,PCP [Primary Care Provider] - 1 week
[2019-02-03] MEDS: Lactobacillus 1 EACH CAP.SPRINK PO SCH (21:20)
[2019-02-03] MEDS: traZODone 50 MG TABLET PO PRN (21:20)
[2019-02-04] MEDS: Acetaminophen 325 MG TABLET PO SCH ×4 (00:51→17:06)
[2019-02-04] MEDS: Ascorbic Acid 500 MG TABLET PO SCH (06:08)
[2019-02-04] MEDS: Lactobacillus 1 EACH CAP.SPRINK PO SCH ×2 (08:57→20:14)
[2019-02-04] MEDS: Gabapentin 300 MG CAPSULE PO SCH ×3 (08:57→20:14)
[2019-02-04] MEDS: Cyanocobalamin (B-12) 1,000 MCG TABLET PO SCH (08:57)
[2019-02-04] MEDS: Cholecalciferol (D-3) 1,000 UNIT TABLET PO SCH (08:57)
[2019-02-04] MEDS: traZODone 50 MG TABLET PO PRN (20:15)
[2019-02-05] MEDS: Acetaminophen 325 MG TABLET PO SCH ×2 (00:16→06:14)
[2019-02-05] MEDS: Ascorbic Acid 500 MG TABLET PO SCH (06:15)
[2019-02-05 06:56] VITALS: BP 115/59
[2019-02-05] MEDS: Gabapentin 300 MG CAPSULE PO SCH (08:07)
[2019-02-05] MEDS: Lactobacillus 1 EACH CAP.SPRINK PO SCH (08:07)
[2019-02-05] MEDS: Cholecalciferol (D-3) 1,000 UNIT TABLET PO SCH (08:07)
[2019-02-05] MEDS: Cyanocobalamin (B-12) 1,000 MCG TABLET PO SCH (08:07)
--- NOTE | 2019-02-05 11:01 | Discharge Summary ---
Date of Encounter: 02/05/19 Time of Encounter: 10:47 - Discharge Diagnosis (1) Compression fx, lumbar spine Priority: Primary Status: Acute Qualifiers: Encounter type: initial encounter Lumbar vertebra fracture level: L2 Fracture type: closed Qualified Code(s): S32.020A - Wedge compression fracture of second lumbar vertebra, initial encounter for closed fracture (2) Parkinsons disease Priority: Secondary Status: Acute (3) Dementia Priority: Secondary Status: Chronic Qualifiers: Dementia type: unspecified type Dementia behavioral disturbance: without behavioral disturbance Qualified Code(s): F03.90 - Unspecified dementia without behavioral disturbance (4) CAD (coronary artery disease) Priority: Secondary Status: Chronic Qualifiers: Coronary Disease-Associated Artery/Lesion type: [place] artery [place] vs. transplanted heart: [place] heart Associated angina: without angina Qualified Code(s): I25.10 - Atherosclerotic heart disease of [place] coronary artery without angina pectoris (5) Hypothyroidism Priority: Secondary Status: Chronic Qualifiers: Hypothyroidism type: unspecified Qualified Code(s): E03.9 - Hypothyroidism, unspecified (6) Anemia Priority: Secondary Status: Chronic Qualifiers: Anemia type: unspecified type Qualified Code(s): D64.9 - Anemia, unspecifi ed (7) Hypokalemia Priority: Secondary Status: Acute (8) Diarrhea Priority: Secondary Status: Resolved Qualifiers: Diarrhea type: unspecified type Qualified Code(s): R19.7 - Diarrhea, unspecified (9) Leukocytosis Priority: Secondary Status: Resolved Qualifiers: Leukocytosis type: unspecified Qualified Code(s): D72.829 - Elevated white blood cell count, unspecified (10) Hematuria Priority: Secondary Status: Resolved Qualifiers: Hematuria type: unspecified type Qualified Code(s): R31.9 - Hematuria, unspecified Hospital course: Mr. Francis is a 88 year old male who was transferred from [facility] ER to [facility] January 14 after a fall home resulted in L2 and L4 compression fractures. He underwent kyphoplasty at [facility] as well as L3-4 laminectomy for severe lumbar stenosis causing neurogenic claudication. He was discharged to [facility] swing bed for ongoing rehabilitation therapy. Initial orders were written by the discharging physicians at [facility]. I saw him on January 21 and performed the swing bed history and physical. He was given scheduled Tylenol. Lidoderm patch and back brace were also used. PT and OT evaluations with ongoing interventions were done. He had no residual pain in his back on day of discharge. He progressed well in therapy. He will continue with home health PT and OT services after discharge. MMSE score 19/30 was documented. Synthroid dose was increased to 150 g daily after TSH returned elevated at 12.483. B12 level was normal at 589. His PCP can determine if medication for dementia is given. Anemia testing showed iron 37, transferrin saturation 16%, transferrin 165, ferritin 496, and folate 9.7. B12 level was normal as above. He was started on ferrous sulfate with ascorbic acid. These will be continued at discharge. Hemoglobin was stable at 9.4 on day of discharge. There were no new problems and on February 05 he was stable for discharge home. He will follow with his PCP Wilton Conde CNP within 1 week. He will follow with spine surgeons as directed. Home health services will be ordered. - Time Spent with Patient Total time spent providing and/or coordinating discharge services: - Discharge Medications Prescriptions: New Ascorbic Acid [Vitamin C] 500 mg PO 0630 #30 tablet Ferrous Sulfate 325 mg PO 0630 #30 tablet Levothyroxine [Synthroid] 150 mcg PO 0630 #30 tablet Continue Clopidogrel [Plavix] 75 mg PO DAILY Acetaminophen [Tylenol] 650 mg PO Q6HR PRN 30 Days #90 tablet PRN Reason: Fever Triamcinolone 1 appl TP AD PRN PRN Reason: Rash Pantoprazole Sodium [Protonix] 40 mg PO DAILY Gabapentin [Neurontin] 100 mg PO TID Atorvastatin Calcium [Lipitor] 20 mg PO QPM DULoxetine [Cymbalta] 20 mg PO DAILY Discontinued Lactulose 10 gm PO BID 30 Days #60 udc Cetirizine HCl [Zyrtec] 10 mg PO DAILY Levothyroxine [Synthroid] 112 mcg PO 0630 Ferrous Sulfate [Iron] 325 mg PO TID Home Medications: Clopidogrel [Plavix] 75 mg PO DAILY 11/16/17 [History] Atorvastatin Calcium [Lipitor] 20 mg PO QPM 07/10/18 [History] Gabapentin [Neurontin] 100 mg PO TID 07/10/18 [History] Pantoprazole Sodium [Protonix] 40 mg PO DAILY 07/10/18 [History] Triamcinolone 1 appl TP AD PRN 07/10/18 [History] Acetaminophen [Tylenol] 650 mg PO Q6HR PRN 30 Days #90 tablet 07/15/18 [Rx] DULoxetine [Cymbalta] 20 mg PO DAILY 01/14/19 [History] Ascorbic Acid [Vitamin C] 500 mg PO 0630 #30 tablet 02/05/19 [Rx] Ferrous Sulfate 325 mg PO 0630 #30 tablet 02/05/19 [Rx] Levothyroxine [Synthroid] 150 mcg PO 0630 #30 tablet 02/05/19 [Rx] Allergies/Adverse Reactions: Allergy/AdvReac Type Severity Reaction Status Date / Time No Known Allergies Allergy Verified 11/16/17 14:33 Date of admission: 01/20/19 21:45 Primary care physician: Wilton Conde [employer] Consults: 01/20/19 22:36 Consult to Occupational Therapy [CONS] Routine Comment: evuate pt, develop POC, Implement POC. Reason for Consult: To evaluate patient, develop plan of care, and implement plan of care. Does patient have active BEDREST order?: No Is patient medically & hemodynamically stable?: Yes Consult to Physical Therapy [CONS] Routine Comment: Evaluate pt, develop POC, implement POC Reason for Consult: To evaluate patient, develop plan of care, and implement plan of care. Does patient have active BEDREST order?: No Is patient medically & hemodynamically stable?: Yes Consult to External Relations Manager [CONS] Routine Reason for SW Consult: To evaluate patient, develop plan of care, and implement plan of care. - Constitutional Vitals: Temp Pulse Resp BP Pulse Ox 99.4 F 80 16 115/59 93 02/05/19 06:53 02/05/19 06:53 02/05/19 06:53 02/05/19 06:53 02/05/19 06:53 - Patient Status Disposition: Home Health Service - Discharge Instructions Follow Up With: NONE,PCP [Primary Care Provider] - 1 week - Diet and Activity Activity: as per physical therapy Diet: advance to your usual diet - VTE Documentation of Mechanical Device: Graduated compression elastic hosiery
--- NOTE | 2019-02-05 11:08 | Physician Discharge Referral ---
Home Health/Hosp Referral Info Transfer to: Home Health Attending Provider: Josh Provider in Charge Post Discharge: PCP (Elton) - Diagnosis (1) Compression fx, lumbar spine Priority: Primary Status: Acute (2) Parkinsons disease Priority: Secondary Status: Acute (3) Dementia Priority: Secondary Status: Chronic (4) CAD (coronary artery disease) Priority: Secondary Status: Chronic (5) Hypothyroidism Priority: Secondary Status: Chronic (6) Anemia Priority: Secondary Status: Chronic (7) Hypokalemia Priority: Secondary Status: Acute (8) Diarrhea Priority: Secondary Status: Resolved (9) Leukocytosis Priority: Secondary Status: Resolved (10) Hematuria Priority: Secondary Status: Resolved - Respiratory Orders Smoking Cessation: Smoking cessation has been advised. For more information, call the [place] Tobacco Quit Line at 5-210-JIZN-NOW. - Diet/Nutrition Diet/Nutrition Orders: Regular - Activity Activity Orders: Walker - Services Needed Following services are medically necessary services: Nursing, Home Health Aide, Physical Therapy, Occupational Therapy - Transfer Medications Prescriptions: Ascorbic Acid [Vitamin C] 500 mg PO 0630 #30 tablet Ferrous Sulfate 325 mg PO 0630 #30 tablet Levothyroxine [Synthroid] 150 mcg PO 0630 #30 tablet Home Medications: Clopidogrel [Plavix] 75 mg PO DAILY 11/16/17 [History] Atorvastatin Calcium [Lipitor] 20 mg PO QPM 07/10/18 [History] Gabapentin [Neurontin] 100 mg PO TID 07/10/18 [History] Pantoprazole Sodium [Protonix] 40 mg PO DAILY 07/10/18 [History] Triamcinolone 1 appl TP AD PRN 07/10/18 [History] Acetaminophen [Tylenol] 650 mg PO Q6HR PRN 30 Days #90 tablet 07/15/18 [Rx] DULoxetine [Cymbalta] 20 mg PO DAILY 01/14/19 [History] Ascorbic Acid [Vitamin C] 500 mg PO 0630 #30 tablet 02/05/19 [Rx] Ferrous Sulfate 325 mg PO 0630 #30 tablet 02/05/19 [Rx] Levothyroxine [Synthroid] 150 mcg PO 0630 #30 tablet 02/05/19 [Rx] Allergies/Adverse Reactions: Allergy/AdvReac Type Severity Reaction Status Date / Time No Known Allergies Allergy Verified 11/16/17 14:33 Certification: Further, I certify that my clinical findings support that this patient is homebound (i.e. absences from home require considerable and taxing effort and are for medical reasons or advent services or infrequently or short duration when for other reasons) because: Homebound Reason: Leaving home requires considerable and taxing effort due to condition (Impaired ambulation secondary to Parkinson's disease and compression fractures) Attestation: My signature below is to certify that this patient is under my care and that I, or nurse practitioner, or a physician's nursing home assistant working with me, has a [id number] encounter with this patient.
[2019-02-27] MEDS ORDERED: Aminoglycoside Consult 1 EACH MC ONE (10:00)
== END 2019-02-05 11:59 | disposition home health service (06) | DRG 561 ==
LOC: INPPIK 21:45
PROVIDERS: ADMIT Internal Medicine; ATTEND Internal Medicine

== ENCOUNTER 2019-02-06 11:54 | Inpatient (IN) ==
[2019-02-06] MEDS ORDERED: 0.9 % Sodium Chloride 1,000 ML IVC ONE (12:57)
[2019-02-06] MEDS ORDERED: Ipratropium/Albuterol Neb 3 ML IH ONE (12:57)
[2019-02-06 13:24] LABS: Basophils % 0.3 %; Eosinophils # 0.1 K/mcL (0.0-0.6); Eosinophils % 1.5 %; Hematocrit 29.9 % (37.5-50.1); Hemoglobin 9.6 g/dL (12.9-16.9); Immature Granulocytes % 0.6 % (0-4); Lymphocytes # 0.5 K/mcL (0.6-4.6); Lymphocytes % 13.9 %; Mean Corpuscular HGB Conc 32.1 g/dL (31.6-35.5); Mean Corpuscular Hemoglobin 30.8 pg (28.0-33.3); Mean Corpuscular Volume 95.8 fL (83.0-100.0); Monocytes # 0.3 K/mcL (0.0-1.3); Monocytes % 8.3 %; Neutrophils # 2.6 K/mcL (1.6-8.9); Platelet Count 204 K/mcL (140-400); Red Blood Count 3.12 M/mcL (4.19-5.50); Red Cell Distribution Width 14.6 % (11.5-14.5); Segmented Neutrophils % 75.4 %
[2019-02-06 13:44] LABS: BUN/Creatinine Ratio 17 (6-26); Blood Urea Nitrogen 10 mg/dL (8-23); Calcium 8.7 mg/dL (8.6-10.3); Carbon Dioxide 30 mEq/L (23-29); Chloride 99 mEq/L (98-107); Glucose 119 mg/dL (70-105); Osmolality,Calculated 280 (280-300); Potassium 3.7 mEq/L (3.5-5.1); Sodium 135 mEq/L (136-145); eGFR For Non-African Americans > 60 (> 60)
[2019-02-06 13:45] LABS: Troponin I < 0.03 ng/mL (< 0.04)
[2019-02-06] MEDS ORDERED: Isovue-370 500 ML BOTTLE IVP ONE (13:58)
--- NOTE | 2019-02-06 14:02 | Emergency Department Note ---
Disposition Clinical Impression: Influenza A, Hypoxia Disposition: Admitted As Inpatient Condition: Fair Referrals: Wilton Conde, [employer] SUPERVISOR [Primary Care Provider] - Forms: ED Satisfaction Letter Time of Disposition: 15:14 SOB HPI - General Chief Complaint: ED Shortness of Breath/Dyspnea Stated Complaint: RAJEEV Time Seen by Provider: 02/06/19 12:09 Source: patient, family, EMS Mode of arrival: EMS Limitations: other Nursing Notes Reviewed: Yes Vital Signs Reviewed: Yes - History of Present Illness Pt Subjective Complaint: shortness of breath, cough Onset (ago): day(s) (Cough is been present for a few days. Severe shortness of breath episode this morning at home.) Context: other (Patient had recently fallen. He ended up being transferred to [facility] and underwent spine surgery. He was transferred back down here for rehabilitation. At the end of the rehabilitation stay he sometimes some cough issues. The start him on some antibiotics and he completed those and was actually discharged from rehabilitation yesterday. He got him home yesterday he went straight to bed and this morning was coughing a lot and was pretty short of breath so they called the squad and had him transported back here.) Severity: severe (Shortness of breath was severe this morning although now it seems to be resolved.) Consistency/Duration: intermittent (Cough is frequent but intermittent. Shortness of breath episodes are intermittent.) Improves with: nothing Worsens with: exertion, coughing Associated symptoms: Reports: cough. Denies: chest pain, fever Treatment prior to arrival: oxygen Cough present: Yes Cough Description: Involuntary - Related Data Home Medications Medication Instructions Recorded Confirmed Clopidogrel [Plavix] 75 mg PO DAILY 11/16/17 02/06/19 Atorvastatin Calcium [Lipitor] 20 mg PO QPM 07/10/18 02/06/19 Gabapentin [Neurontin] 100 mg PO TID 07/10/18 02/06/19 Pantoprazole Sodium [Protonix] 40 mg PO DAILY 07/10/18 02/06/19 Triamcinolone 1 appl TP AD PRN 07/10/18 02/06/19 DULoxetine [Cymbalta] 20 mg PO DAILY 01/14/19 02/06/19 Previous Rx's Medication Instructions Recorded Acetaminophen [Tylenol] 650 mg PO Q6HR PRN 30 Days #90 07/15/18 tablet Allergies Allergy/AdvReac Type Severity Reaction Status Date / Time No Known Allergies Allergy Verified 11/16/17 14:33 All systems ED: reviewed and negative except as stated. Constitutional: Reports: chills. Denies: fever ENT ED: Denies: ear pain, throat pain, congestion Cardiovascular: Denies: chest pain, palpitations Respiratory: Reports: cough, dyspnea. Denies: wheezes Gastrointestinal: Denies: abdominal pain, vomiting, diarrhea Integumentary: Denies: rash Neurological: Denies: headache Past Medical History - Past Medical History Attestation: Yes The following information was validated with the patient. Source: patient, old records reviewed, obtained from family, nursing notes reviewed Medical history: Reports: coronary artery disease, dementia, diabetes, GERD, hyperlipidemia, myocardial infarction, thyroid disease, other Surgical history: Reports: angioplasty/stent, orthopedic, other Psychiatric history: Reports: no psych history - Social History Smoking Status: Never smoker Smokeless Tobacco Status: No Alcohol use: Reports: none Drug use: Reports: none Physical Exam - General Limitations: other General appearance: alert, in no apparent distress - Head Head exam: atraumatic, normocephalic, normal inspection - Eye Eye exam: Present: normal appearance, PERRL, EOMI. Absent: scleral icterus, conjunctival injection, periorbital swelling - ENT ENT exam: normal exam, normal oropharynx, mucous membranes moist, TM's normal bilaterally, normal external ear exam - Neck Neck exam: Present: normal inspection, full ROM, trachea midline. Absent: tenderness, meningismus - Chest Chest inspection: Present: normal inspection, symmetric chest wall rise. Absent: tenderness - Respiratory Respiratory exam: Present: normal lung sounds bilaterally. Absent: respiratory distress, wheezes, accessory muscle use - Cardiovascular Cardiovascular exam: Present: regular rate, normal rhythm, normal heart sounds - Abdominal Exam Abdominal exam: Present: soft, Non-Tender, normal bowel sounds - Extremities Exam Extremities exam: Present: normal inspection. Absent: pedal edema - Neurological Exam Neurological exam: Present: alert, oriented X3 - Psychiatric Psychiatric exam: Present: normal affect, normal mood - Skin Skin exam: Present: warm, dry. Absent: rash Course Course Narrative: Patient presents with shortness of breath episode this morning that was very concerning to the family. He certainly does not know short of breath now. He has coughed frequently here in the department. Sounds like a cough going on for a few days. I will do a lab workup on the patient. We will get a chest x-ray. Disposition will be based on diagnostic results and reevaluation. - Reevaluation(s) Reevaluation #1: After breathing treatments the patient seems to be coughing little bit more. However he does not appear short of breath. His vital signs are good. His oxygenation is good. Chest x-ray showed pleural effusion on the left. We need to delineate that little bit more clearly. His blood work his at or better than baseline. I am going to send him back over for CTA of the chest to make sure that this is not a postoperative pulmonary embolism causing the effusion and cough. It will also allow us to delineate if there is underlying pneumonia there. Time: 14:05 Reevaluation #2: CT was negative. Flu swab came back positive for flu a. Patient had nostril requirement with O2 sats of 85% on arrival. Thus he needs to be admitted to the hospital. I spoke with Dr. Moreno, the hospitalist, who accepted the patient for admission. Time: 15:12 - Consultations Consultation #1: Dr. Moreno, hospitalist - I discussed the case with the hospitalist. He accepted the patient for admission. Time: 15:13 Vital Signs Temperature 98.7 F 02/06/19 11:59 Pulse Rate 82 02/06/19 11:59 Respiratory Rate 21 02/06/19 11:59 Blood Pressure 152/86 02/06/19 11:59 O2 Sat by Pulse Oximetry 95 02/06/19 11:59 Temperature 98.7 F 02/06/19 11:59 Pulse Rate 97 02/06/19 14:34 Respiratory Rate 23 02/06/19 14:34 Blood Pressure 127/88 02/06/19 14:34 O2 Sat by Pulse Oximetry 97 02/06/19 14:34 Oxygen Delivery Oxygen Delivery Nasal Cannula Shortness of Breath/Dyspnea - Medical Records Medical records reviewed: Yes I reviewed the patient's medical records. - Lab Data Lab results reviewed: Yes I reviewed the patient's lab results. Result diagrams: 02/06/19 13:15 02/06/19 13:15 Lab Results 02/06/19 02/06/19 02/06/19 Range/Units 13:15 13:15 13:15 WBC 3.4 L (4.3-11.1) K/mcL RBC 3.12 L (4.19-5.50) M/mcL Hgb 9.6 L (12.9-16.9) g/dL Hct 29.9 L (37.5-50.1) % MCV 95.8 (83.0-100.0) fL MCH 30.8 (28.0-33.3) pg MCHC 32.1 (31.6-35.5) g/dL RDW 14.6 H (11.5-14.5) % Plt Count 204 (140-400) K/mcL MPV 8.0 L (9.4-12.4) fL Immature Gran % 0.6 (0-4) % Seg Neutrophils % 75.4 % Lymphocytes % 13.9 % Monocytes % 8.3 % Eosinophils % 1.5 % Basophils % 0.3 % Neutrophils # 2.6 (1.6-8.9) K/mcL Lymphocytes # 0.5 L (0.6-4.6) K/mcL Monocytes # 0.3 (0.0-1.3) K/mcL Eosinophils # 0.1 (0.0-0.6) K/mcL Basophils # 0.0 (0.0-0.2) K/mcL Sodium 135 L (136-145) mEq/L Potassium 3.7 (3.5-5.1) mEq/L Chloride 99 (98-107) mEq/L Carbon Dioxide 30 H (23-29) mEq/L BUN 10 (8-23) mg/dL Creatinine 0.60 L (0.70-1.30) mg/dL Est GFR ( Amer) > 60 (> 60) Est GFR (Non-Af Amer) > 60 (> 60) BUN/Creatinine Ratio 17 (6-26) Glucose 119 H (70-105) mg/dL Calculated Osmolality 280 (280-300) Lactic Acid 1.2 (0.5-2.2) mmol/L Calcium 8.7 (8.6-10.3) mg/dL Troponin I < 0.03 (< 0.04) ng/mL B-Natriuretic Peptide (Less than 100) pg/mL 02/06/19 Range/Units 13:15 WBC (4.3-11.1) K/mcL RBC (4.19-5.50) M/mcL Hgb (12.9-16.9) g/dL Hct (37.5-50.1) % MCV (83.0-100.0) fL MCH (28.0-33.3) pg MCHC (31.6-35.5) g/dL RDW (11.5-14.5) % Plt Count (140-400) K/mcL MPV (9.4-12.4) fL Immature Gran % (0-4) % Seg Neutrophils % % Lymphocytes % % Monocytes % % Eosinophils % % Basophils % % Neutrophils # (1.6-8.9) K/mcL Lymphocytes # (0.6-4.6) K/mcL Monocytes # (0.0-1.3) K/mcL Eosinophils # (0.0-0.6) K/mcL Basophils # (0.0-0.2) K/mcL Sodium (136-145) mEq/L Potassium (3.5-5.1) mEq/L Chloride (98-107) mEq/L Carbon Dioxide (23-29) mEq/L BUN (8-23) mg/dL Creatinine (0.70-1.30) mg/dL Est GFR ( Amer) (> 60) Est GFR (Non-Af Amer) (> 60) BUN/Creatinine Ratio (6-26) Glucose (70-105) mg/dL Calculated Osmolality (280-300) Lactic Acid (0.5-2.2) mmol/L Calcium (8.6-10.3) mg/dL Troponin I (< 0.04) ng/mL B-Natriuretic Peptide 277 H (Less than 100) pg/mL - Radiology Data Radiology results reviewed: Yes I reviewed the patient's radiology results. - EKG Data EKG attestation: Yes I reviewed and interpreted this EKG. EKG results narrative: Twelve-lead EKG performed at 12:01 PM. Ordered, reviewed and interpreted by ED physician showed sinus rhythm at a rate of 83. Normal axis. Good hour progression across to precordium. No acute ischemic changes. Intervals within normal limits.
[2019-02-06] MEDS ORDERED: Naloxone 0.4 MG/ML INJ IVP PRN (15:37)
[2019-02-06] MEDS ORDERED: 0.9 % Sodium Chloride 1,000 ML IVC SCH (15:37)
--- NOTE | 2019-02-06 18:42 | Internal Med History&Physical ---
Date of Encounter: 02/06/19 Time of Encounter: 18:20 Assessment and Plan (1) Influenza A Current visit: Yes Status: Acute He was started on Tamiflu in emergency room. (2) Type 2 diabetes mellitus Current visit: No Status: Chronic Hemoglobin A1c was 5.9% on 01/23/2019. No diabetic medication listed on home med sheet. Qualifiers: Diabetes mellitus fdc insulin use: without fdc use Diabetes mellitus complication status: with neurologic complications Diabetes mellitus complication detail: with polyneuropathy Qualified Code(s): E11.42 - Type 2 diabetes mellitus with diabetic polyneuropathy (3) Hypothyroidism Current visit: No Status: Chronic TSH returned elevated at 12.483 during his recent swing bed stay. Continue Synthroid 150 g daily. Qualifiers: Hypothyroidism type: unspecified Qualified Code(s): E03.9 - Hypothyroidism, unspecified (4) Anemia Current visit: No Status: Chronic Hemoglobin improved to 9.6 on labs in ER. Anemia testing was done during his recent swing bed stay. Continue ferrous sulfate with ascorbic acid. Qualifiers: Anemia type: unspecified type Qualified Code(s): D64.9 - Anemia, unspecified (5) Parkinsons disease Current visit: No Status: Acute (6) Dementia Current visit: No Status: Chronic Qualifiers: Dementia type: unspecified type Dementia behavioral disturbance: without behavioral disturbance Qualified Code(s): F03.90 - Unspecified dementia without behavioral disturbance Internal Medicine - H&P: HPI Chief complaint: Dyspnea and cough Admitted From: Emergency Dept Plans for Post Hospital Care: Home History of present illness: Mr. Francis is a 89 year old male who was in [facility] swing bed January 21-February 05 for rehabilitation following kyphoplasty on L2 and L4 lumbar compression fractures. He states shortly after he arrived home yesterday he began developing nonproductive cough and dyspnea. He states he did not feel well overall. He denies pain vomiting or diarrhea. He came to emergency room this morning and w as found to have influenza A. He was admitted to [facility] floor for ongoing care needs. Respiratory history is significant for having smoked minimally in early adulthood. 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 He does not use home oxygen. Past Med Surg Social Fam HX - Past Medical History Medical history: coronary artery disease, dementia, diabetes, GERD, hyperlipidemia, myocardial infarction, thyroid disease, other Additional medical history: NEUROPATHY, Emphysema, parkinsons,anemai Psychiatric history: no psych history - Past Surgical History Surgical History: angioplasty/stent, orthopedic, other Additional surgical history: REPAIR "LOOSE VEIN IN HEART.", HIP REPAIR - Social History Smoking Status: Never smoker Smokeless Tobacco Status: No Alcohol use: none Drug use: none - Family History Mother Living Status: Hx Family Cardiac Disorders: No Father Living Status: Hx Family Cardiac Disorders: Yes Internal Medicine - H&P: Meds Clopidogrel [Plavix] 75 mg PO DAILY 11/16/17 [History] Atorvastatin Calcium [Lipitor] 20 mg PO QPM 07/10/18 [History] Gabapentin [Neurontin] 100 mg PO TID 07/10/18 [History] Pantoprazole Sodium [Protonix] 40 mg PO DAILY 07/10/18 [History] Triamcinolone 1 appl TP AD PRN 07/10/18 [History] Acetaminophen [Tylenol] 650 mg PO Q6HR PRN 30 Days #90 tablet 07/15/18 [Rx] DULoxetine [Cymbalta] 20 mg PO DAILY 01/14/19 [History] Allergy/AdvReac Type Severity Reaction Status Date / Time No Known Allergies Allergy Verified 11/16/17 14:33 All Systems PM: A 10-system review of systems was performed and is negative for pertinent findings except as documented above in the HPI. Review of systems: Review of systems from his recent swing bed stay were reviewed and revised as below. Gen.: He states his weight has been stable for several months Cardiovascular: He reports SD in the past but does not remember details. He denies hypertension heart failure angina DVT or pulmonary embolus. Echocardiogram 07/11/2018 showed LVEF of 70%. No significant valvular abnormality was seen. Interventricular septum and posterior wall thickness measurements were 1.08 and 0.99 cm respectively. E/A ratio was 0.6. Respiratory: As per history of present illness GI: Denies disorders of his liver gallbladder or exocrine pancreas. Available records report history of GERD. : He denies hematuria dysuria or kidney stones Neurologic: He denies large distribution strokes or seizures. He has history of neuropathy not otherwise specified. He states he was recently told he has Parkinson's disease. Endocrine: He has hyperlipidemia. The chart reports diagnosis of "disease of thyroid gland" not otherwise specified. There is no known diabetes. Hematology/oncology: He was unaware he had anemia on labs at [facility]. He denies internal malignancies or other blood disorders. Psychiatric: He has feelings of anxiety depression but does not take medication for these. He denies other mental health diagnoses. [place] skeletal: He underwent L2 and L4 kyphoplasty and L3-4 laminectomy at [facility] prior to arrival at [facility] swing bed January 2019. He reported shoulder surgery in the past. He denies gout or other bone joint or muscle disorders. - Constitutional Vitals: Temp Pulse Resp BP Pulse Ox 98.7 F 108 23 126/78 95 02/06/19 11:59 02/06/19 15:00 02/06/19 15:53 02/06/19 15:53 02/06/19 15:00 Exam: Gen.: He is a well-developed well-nourished male lying in bed who appears minimally dyspneic at present time. He answers questions appropriately. HEENT: Head is atraumatic and normal cephalic. Eyes: EOMI. There is no scleral icterus. Mouth: Mucosa is moist. Neck: Supple and nontender. There is no thyromegaly or adenopathy noted. Heart: Regular without murmurs gallops or ectopics Lungs: No wheezes or crackles are heard. Abdomen: Soft and nontender. No masses or guarding are noted. Extremities: There is no cyanosis edema or clubbing noted. Dorsalis pedis and posterior tibial pulses are trace to 1+ palpable bilaterally. Neurologic: Mental status: He is talkative and a good historian. Cranial nerves: Smile is symmetric. Forehead wrinkles bilaterally. Tongue protrudes midline. EOMI. Motor: He has parkinsonian tremor at rest of his hands and jaw. There is no pronator drift. Cerebellar: Finger to nose is intact bilaterally. Skin: Warm and dry Internal Med - H&P Results - Labs CBC & Chem 7: 02/06/19 13:15 02/06/19 13:15 Labs: Short CBC 02/06/19 Range/Units 13:15 WBC 3.4 L (4.3-11.1) K/mcL Hgb 9.6 L (12.9-16.9) g/dL Hct 29.9 L (37.5-50.1) % Plt Count 204 (140-400) K/mcL Neutrophils # 2.6 (1.6-8.9) K/mcL BMP 02/06/19 13:15 Sodium 135 L Potassium 3.7 Chloride 99 Carbon Dioxide 30 H BUN 10 Creatinine 0.60 L Glucose 119 H Calcium 8.7 Cardiac Enzymes 02/06/19 Range/Units 13:15 Troponin I < 0.03 (< 0.04) ng/mL - Impressions ITS Impressions Chest X-Ray 02/06/19 12:56 IMPRESSION: Within the limitations of the exam there appears to be a small left pleural effusion, new from 01/27/2019. Otherwise stable exam as above. D/ / 02/06/2019 13:32:47 David Cantu MD / joe Interpreting Provider: David Cantu MD Chest CTA 02/06/19 13:58 IMPRESSION: Motion limited study. No evidence of central or lobar pulmonary embolism. 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 Stable changes related to COPD as well as biapical scarring. D/ / Lul Belle / Lul Belle Interpreting Provider: Lul Belle
[2019-02-06] MEDS ORDERED: traZODone 50 MG TABLET PO PRN (18:54)
[2019-02-06] MEDS ORDERED: Albuterol 2.5 MG/3 ML NEBULIZER IH PRN (18:54)
[2019-02-06] MEDS: Gabapentin 100 MG CAPSULE PO SCH (19:47)
[2019-02-06] MEDS: 0.9 % Sodium Chloride 1,000 ML IVC SCH (23:22)
[2019-02-06] MEDS: Acetaminophen 325 MG TABLET PO PRN (23:27)
[2019-02-07] MEDS: Ascorbic Acid 500 MG TABLET PO SCH ×2 (05:37→08:39)
[2019-02-07] MEDS: 0.9 % Sodium Chloride 1,000 ML IVC SCH (05:45)
[2019-02-07 06:39] LABS: Basophils % 0.4 %; Eosinophils # 0.1 K/mcL (0.0-0.6); Eosinophils % 2.3 %; Hemoglobin 8.9 g/dL (12.9-16.9); Immature Granulocytes % 0.4 % (0-4); Lymphocytes # 0.8 K/mcL (0.6-4.6); Lymphocytes % 32.3 %; Mean Corpuscular HGB Conc 30.7 g/dL (31.6-35.5); Mean Corpuscular Volume 97.6 fL (83.0-100.0); Mean Platelet Volume 8.5 fL (9.4-12.4); Monocytes # 0.3 K/mcL (0.0-1.3); Monocytes % 12.7 %; Neutrophils # 1.4 K/mcL (1.6-8.9); Platelet Count 179 K/mcL (140-400); Red Blood Count 2.97 M/mcL (4.19-5.50); Red Cell Distribution Width 14.7 % (11.5-14.5); Segmented Neutrophils % 51.9 %
[2019-02-07 07:01] LABS: Platelet Estimate Normal (Normal)
[2019-02-07 07:03] LABS: Alanine Aminotransferase 21 Units/L (7-52); Albumin 3.4 g/dL (3.5-5.7); Alkaline Phosphatase 87 Units/L (34-104); Aspartate Amino Transferase 34 Units/L (13-39); BUN/Creatinine Ratio 18 (6-26); Bilirubin,Total 0.4 mg/dL (0.3-1.0); Blood Urea Nitrogen 10 mg/dL (8-23); Calcium 8.4 mg/dL (8.6-10.3); Carbon Dioxide 23 mEq/L (23-29); Chloride 104 mEq/L (98-107); Globulin 3.4 g/dL (2.4-3.5); Glucose 123 mg/dL (70-105); Osmolality,Calculated 282 (280-300); Sodium 136 mEq/L (136-145); Total Protein 6.8 g/dL (6.4-8.9); eGFR For Non-African Americans > 60 (> 60)
[2019-02-07] MEDS: Acetaminophen 325 MG TABLET PO PRN (08:29)
[2019-02-07] MEDS: Gabapentin 100 MG CAPSULE PO SCH ×3 (08:30→20:34)
--- NOTE | 2019-02-07 11:23 | Internal Med Progress Note ---
Date of Encounter: 02/07/19 Time of Encounter: 11:15 - Assessment and plan (1) Influenza A Current Visit: Yes Status: Acute Assessment and plan: February 07. Continue Tamiflu. (2) Type 2 diabetes mellitus Current Visit: No Status: Chronic Assessment and plan: February 07. Hemoglobin A1c was 5.9% on 01/23/2019. 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 Continue Synthroid. Qualifiers: Hypothyroidism type: unspecified Qualified Code(s): E03.9 - Hypothyroidism, unspecified (4) Anemia Current Visit: No Status: Chronic Assessment and plan: February 07. Hemoglobin has decreased to 8.9 with IV fluids. Anemia testing was done during his recent swing bed stay. Continue ferrous sulfate with ascorbic acid. Qualifiers: Anemia type: unspecified type Qualified Code(s): D64.9 - Anemia, unspecified (5) Parkinsons disease Current Visit: No Status: Acute Assessment and plan: February 07. Start Sinemet. (6) Dementia Current Visit: No Status: Chronic Assessment and plan: February 07. MMSE during recent swing bed stay showed score 19/30. Qualifiers: Dementia type: unspecified type Dementia behavioral disturbance: without behavioral disturbance Qualified Code(s): F03.90 - Unspecified dementia without behavioral disturbance - Subjective Interval history: February 07. He has no new complaints and feels better. - Constitutional Vitals: Temp Pulse Resp BP Pulse Ox 98.2 F 74 18 133/76 99 02/07/19 10:33 02/07/19 10:33 02/07/19 10:33 02/07/19 10:33 02/07/19 10:33 Exam: He is resting comfortably in bed and appears in no acute distress. He is wearing oxygen by nasal cannula. His affect is bright and cheerful. I reviewed his medications and lab results. Internal Medicine: Result - Labs CBC & Chem 7: 02/07/19 06:00 02/07/19 06:00 Labs: Short CBC 02/06/19 02/07/19 Range/Units 13:15 06:00 WBC 3.4 L 2.6 L (4.3-11.1) K/mcL Hgb 9.6 L 8.9 L (12.9-16.9) g/dL Hct 29.9 L 29.0 L (37.5-50.1) % Plt Count 204 179 (140-400) K/mcL Neutrophils # 2.6 1.4 L (1.6-8.9) K/mcL BMP 02/06/19 02/07/19 13:15 06:00 Sodium 135 L 136 Potassium 3.7 4.0 Chloride 99 104 Carbon Dioxide 30 H 23 BUN 10 10 Creatinine 0.60 L 0.56 L Glucose 119 H 123 H Calcium 8.7 8.4 L Cardiac Enzymes 02/06/19 Range/Units 13:15 Troponin I < 0.03 (< 0.04) ng/mL Liver Function 02/07/19 Range/Units 06:00 Total Bilirubin 0.4 (0.3-1.0) mg/dL AST 34 (13-39) Units/L ALT 21 (7-52) Units/L Alkaline Phosphatase 87 (34-104) Units/L Albumin 3.4 L (3.5-5.7) g/dL - Impressions Impressions Chest X-Ray 02/06/19 12:56 IMPRESSION: Within the limitations of the exam there appears to be a small left pleural effusion, new from 01/27/2019. Otherwise stable exam as above. D/ / 02/06/2019 13:32:47 David Cantu MD / joe Interpreting Provider: David Cantu MD Chest CTA 02/06/19 13:58 IMPRESSION: Motion limited study. No evidence of central or lobar pulmonary embolism. 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 Stable changes related to COPD as well as biapical scarring. D/ / Lul Belle / Llu Belle Interpreting Provider: Lul Belle Consult Discharge Plan - Plan Referrals: Wilton Conde, PRINCIPAL NETWORK ENGINEER [Primary Care Provider] - 1 week
[2019-02-07] MEDS: Carbidopa/Levodopa ER 50/200 TABLET PO SCH ×2 (13:38→20:34)
--- NOTE | 2019-02-07 18:00 | Electrocardiograph Report ---
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
[2019-02-08 06:47] LABS: Basophils % 0.6 %; Eosinophils # 0.2 K/mcL (0.0-0.6); Hematocrit 27.6 % (37.5-50.1); Hemoglobin 8.8 g/dL (12.9-16.9); Immature Granulocytes % 0.6 % (0-4); Lymphocytes % 29.9 %; Mean Corpuscular HGB Conc 31.9 g/dL (31.6-35.5); Mean Corpuscular Volume 94.2 fL (83.0-100.0); Mean Platelet Volume 8.6 fL (9.4-12.4); Monocytes # 0.3 K/mcL (0.0-1.3); Monocytes % 9.3 %; Neutrophils # 1.8 K/mcL (1.6-8.9); Platelet Count 157 K/mcL (140-400); Red Blood Count 2.93 M/mcL (4.19-5.50); Red Cell Distribution Width 14.5 % (11.5-14.5); Segmented Neutrophils % 53.6 %
[2019-02-08 06:55] VITALS: BP 139/73
[2019-02-08 07:16] LABS: Platelet Estimate Normal (Normal)
[2019-02-08] MEDS: Carbidopa/Levodopa ER 50/200 TABLET PO SCH (08:27)
[2019-02-08] MEDS: Gabapentin 100 MG CAPSULE PO SCH (08:28)
[2019-02-08] MEDS: Ascorbic Acid 500 MG TABLET PO SCH (08:28)
--- NOTE | 2019-02-08 10:27 | Discharge Summary ---
Orders not resulted at time of discharge: Pending orders 02/06/19 13:15 Culture,Blood [BC] Stat Date of Encounter: 02/08/19 Time of Encounter: 10:18 - Discharge Diagnosis (1) Compression fx, lumbar spine Priority: Primary Status: Acute Qualifiers: Encounter type: initial encounter Lumbar vertebra fracture level: L2 Fracture type: closed Qualified Code(s): S32.020A - Wedge compression fracture of second lumbar vertebra, initial encounter for closed fracture (2) Influenza A Priority: Secondary Status: Acute (3) Type 2 diabetes mellitus Priority: Secondary Status: Chronic Qualifiers: Diabetes mellitus meterman insulin use: without meterman use Diabetes mellitus complication status: with neurologic complications Diabetes mellitus complication detail: with polyneuropathy Qualified Code(s): E11.42 - Type 2 diabetes mellitus with diabetic polyneuropathy (4) Hypothyroidism Priority: Secondary Status: Chronic Qualifiers: Hypothyroidism type: unspecified Qualified Code(s): E03.9 - Hypothyroidism, unspecified (5) Anemia Priority: Secondary Status: Chronic Qualifiers: Anemia type: unspecified type Qualified Code(s): D64.9 - Anemia, unspecified (6) Parkinsons disease Priority: Secondary Status: Chronic (7) Dementia Priority: Secondary Status: Chronic Qualifiers: Dementia type: unspecified type Dementia behavioral disturbance: without behavioral disturbance Qualified Code(s): F03.90 - Unspecified dementia without behavioral disturbance Hospital course: Mr. Francis is a 89 year old male who was in [facility] swing bed January 21-February 05 for rehabilitation following kyphoplasty on L2 and L4 lumbar compression fractures. He states shortly after he arrived home yesterday he began developing nonproductive cough and dyspnea. He states he did not feel well overall. He denies pain vomiting or diarrhea. He came to emergency room this morning and was found to have influenza A. He was admitted to [facility] for ongoing care needs. Initial orders were written by the emergency room physician. I saw him on February 07 and performed the history and physical. He was started on Tamiflu for influenza A. He had occasional low-grade fevers. He stated on February 08 he felt weak and felt he should return to swing bed for ongoing therapy prior to returning home. He was discharged to swing bed. PT and OT evaluations will be ordered. - Time Spent with Patient Total time spent providing and/or coordinating discharge services: - Discharge Medications Prescriptions: New Albuterol Neb [Proventil Neb] 2.5 mg IH Q2H PRN inhsol PRN Reason: Shortness Of Breath/Wheezing traZODone [TraZODone] 50 mg PO HS PRN tablet PRN Reason: Insomnia Oseltamivir [Tamiflu] 75 mg PO BID capsule Levothyroxine [Synthroid] 150 mcg PO 0630 tablet GuaiFENesin/Dextromethorphan [Robitussin/Dm] 10 ml PO Q6HR udc Ferrous Sulfate 325 mg PO DAILY tablet Carbidopa/Levodopa ER 50/200 [Sinemet ER 50-200 Tab] 0.5 each PO BID tablet.er Ascorbic Acid [Vitamin C] 500 mg PO DAILY tablet Continue Clopidogrel [Plavix] 75 mg PO DAILY Acetaminophen [Tylenol] 650 mg PO Q6HR PRN 30 Days #90 tablet PRN Reason: Fever Triamcinolone 1 appl TP AD PRN PRN Reason: Rash Gabapentin [Neurontin] 100 mg PO TID Atorvastatin Calcium [Lipitor] 20 mg PO QPM DULoxetine [Cymbalta] 20 mg PO DAILY Discontinued Pantoprazole Sodium [Protonix] 40 mg PO DAILY Home Medications: Clopidogrel [Plavix] 75 mg PO DAILY 11/16/17 [History] Atorvastatin Calcium [Lipitor] 20 mg PO QPM 07/10/18 [History] Gabapentin [Neurontin] 100 mg PO TID 07/10/18 [History] Triamcinolone 1 appl TP AD PRN 07/10/18 [History] Acetaminophen [Tylenol] 650 mg PO Q6HR PRN 30 Days #90 tablet 07/15/18 [Rx] DULoxetine [Cymbalta] 20 mg PO DAILY 01/14/19 [History] Albuterol Neb [Proventil Neb] 2.5 mg IH Q2H PRN inhsol 02/08/19 [Rx] Ascorbic Acid [Vitamin C] 500 mg PO DAILY tablet 02/08/19 [Rx] Carbidopa/Levodopa ER 50/200 [Sinemet ER 50-200 Tab] 0.5 each PO BID tablet.er 02/08/19 [Rx] Ferrous Sulfate 325 mg PO DAILY tablet 02/08/19 [Rx] GuaiFENesin/Dextromethorphan [Robitussin/Dm] 10 ml PO Q6HR udc 02/08/19 [Rx] Levothyroxine [Synthroid] 150 mcg PO 0630 tablet 02/08/19 [Rx] Oseltamivir [Tamiflu] 75 mg PO BID capsule 02/08/19 [Rx] traZODone [TraZODone] 50 mg PO HS PRN tablet 02/08/19 [Rx] Allergies/Adverse Reactions: Allergy/AdvReac Type Severity Reaction Status Date / Time No Known Allergies Allergy Verified 11/16/17 14:33 Date of admission: 02/07/19 15:37 Primary care physician: Wilton Conde CNP - Constitutional Vitals: Temp Pulse Resp BP Pulse Ox 98.3 F 68 16 139/73 97 02/08/19 06:52 02/08/19 06:52 02/08/19 06:52 02/08/19 06:52 02/08/19 06:52 - Patient Status Disposition: Transfer Short-Term Hosp Condition: Fair - Discharge Instructions - Diet and Activity Activity: as per physical therapy Diet: other (Advanced soft diet) - VTE Documentation of Mechanical Device: Graduated compression elastic hosiery
== END 2019-02-08 13:04 | disposition short-term general hospital (02) | DRG 195 ==
LOC: INPPIK 11:54 → EMEROOPIK 11:54 → INPPIK 15:56
PROVIDERS: ADMIT Internal Medicine; ATTEND Internal Medicine

== ENCOUNTER 2019-02-08 11:57 | Inpatient (IN) ==
[2019-02-08] MEDS ORDERED: traZODone 50 MG TABLET PO PRN (12:45)
[2019-02-08] MEDS ORDERED: Albuterol 2.5 MG/3 ML NEBULIZER IH PRN (12:45)
[2019-02-08] MEDS ORDERED: [UNRECOGNIZED DRUG - OTHER] TP PRN (12:45)
[2019-02-08] MEDS: Gabapentin 100 MG CAPSULE PO SCH ×2 (15:26→20:15)
[2019-02-08] MEDS: Carbidopa/Levodopa ER 50/200 TABLET PO SCH (20:14)
[2019-02-09] MEDS: Ascorbic Acid 500 MG TABLET PO SCH (05:15)
[2019-02-09] MEDS: Gabapentin 100 MG CAPSULE PO SCH ×3 (08:43→20:36)
[2019-02-09] MEDS: Carbidopa/Levodopa ER 50/200 TABLET PO SCH ×2 (08:43→20:36)
[2019-02-09] MEDS: Ondansetron ODT 4 MG TAB.RAPDIS SL PRN (14:40)
[2019-02-10] MEDS: Acetaminophen 325 MG TABLET PO PRN ×2 (05:32→15:35)
[2019-02-10] MEDS: Ascorbic Acid 500 MG TABLET PO SCH (05:32)
[2019-02-10] MEDS: Gabapentin 100 MG CAPSULE PO SCH ×3 (09:03→21:41)
[2019-02-10] MEDS: Carbidopa/Levodopa ER 50/200 TABLET PO SCH ×2 (09:04→21:41)
--- NOTE | 2019-02-10 10:12 | Internal Med Progress Note ---
Date of Encounter: 02/10/19 Time of Encounter: 10:05 - Assessment and plan (1) Compression fx, lumbar spine Current Visit: No Status: Acute Assessment and plan: February 10. Continue PT and OT intervention. Qualifiers: Encounter type: initial encounter Lumbar vertebra fracture level: L2 Fracture type: closed Qualified Code(s): S32.020A - Wedge compression fracture of second lumbar vertebra, initial encounter for closed fracture (2) Type 2 diabetes mellitus Current Visit: No Status: Chronic Assessment and plan: February 10. Diet controlled. Hemoglobin A1c was 5.9% on 01/23/2019. Qualifiers: Diabetes mellitus jail insulin use: without jail use Diabetes mellitus complication status: with neurologic complications Diabetes mellitus complication detail: with polyneuropathy Qualified Code(s): E11.42 - Type 2 diabetes mellitus with diabetic polyneuropathy (3) Hypothyroidism Current Visit: No Status: Chronic Assessment and plan: February 10. Continue Synthroid 150 g daily. Qualifiers: Hypothyroidism type: unspecified Qualified Code(s): E03.9 - Hypothyroidism, unspecified (4) Anemia Current Visit: No Status: Chronic Assessment and plan: February 10. Continue ferrous sulfate with ascorbic acid and monitor CBC. Qualifiers: Anemia type: unspecified type Qualified Code(s): D64.9 - Anemia, unspecified (5) Parkinsons disease Current Visit: No Status: Chronic Assessment and plan: February 10. Continue Sinemet. (6) Dementia Current Visit: No Status: Chronic Assessment and plan: February 10. MMSE during previous recent swing bed stay showed score 19/30. B12 was normal at 589. Synthroid was increased due to elevated TSH. Qualifiers: Dementia type: unspecified type Dementia behavioral disturbance: without behavioral disturbance Qualified Code(s): F03.90 - Unspecified dementia without behavioral disturbance (7) Influenza A Current Visit: No Status: Acute Assessment and plan: February 10. Continue Tamiflu. - Subjective Interval history: February 10. He was hospitalized in acute-care at [facility] February 06- after returning to ER the day after swing bed discharge and was found to have influenza A. He made satisfactory progress with treatment but felt overall weak and wished to return to swing bed for additional therapy before returning home. He has no new complaints today. - Constitutional Vitals: Temp Pulse Resp BP Pulse Ox 100.1 F H 82 18 141/72 96 02/10/19 07:36 04/07/19 07:36 02/10/19 07:36 02/10/19 07:36 02/10/19 07:36 Exam: He is resting comfortably sitting in bed and appears in no acute distress. His affect is overall cheerful. Oxygen saturation is 95% on 2 L cannula. Heart rate was 81/m. I reviewed his medications and lab results. Consult Discharge Plan - Plan Referrals: Wilton Conde, [employer] B[employer]NER OPERATOR [Primary Care Provider] - 1 week
[2019-02-10] MEDS ORDERED: 0.45 % Sodium Chloride w/KCl 20 MEQ/1,000 ML MLS IVC SCH (18:15)
[2019-02-10] MEDS: 0.45 % Sodium Chloride w/KCl 20 MEQ/1,000 ML MLS IVC SCH (18:33)
[2019-02-11] MEDS: Acetaminophen 325 MG TABLET PO PRN (01:26)
[2019-02-11] MEDS: Ondansetron ODT 4 MG TAB.RAPDIS SL PRN (01:32)
[2019-02-11] MEDS: Ascorbic Acid 500 MG TABLET PO SCH (05:58)
[2019-02-11 06:47] LABS: Basophils % 0.2 %; Hematocrit 27.7 % (37.5-50.1); Immature Granulocytes % 0.4 % (0-4); Lymphocytes # 0.7 K/mcL (0.6-4.6); Mean Corpuscular HGB Conc 32.5 g/dL (31.6-35.5); Mean Corpuscular Hemoglobin 29.8 pg (28.0-33.3); Mean Corpuscular Volume 91.7 fL (83.0-100.0); Mean Platelet Volume 8.8 fL (9.4-12.4); Monocytes # 0.3 K/mcL (0.0-1.3); Monocytes % 6.4 %; Platelet Count 185 K/mcL (140-400); Red Blood Count 3.02 M/mcL (4.19-5.50); Red Cell Distribution Width 13.9 % (11.5-14.5)
[2019-02-11 07:12] LABS: BUN/Creatinine Ratio 26 (6-26); Blood Urea Nitrogen 14 mg/dL (8-23); Calcium 8.2 mg/dL (8.6-10.3); Carbon Dioxide 28 mEq/L (23-29); Chloride 95 mEq/L (98-107); Glucose 141 mg/dL (70-105); Osmolality,Calculated 275 (280-300); Potassium 2.9 mEq/L (3.5-5.1); Sodium 131 mEq/L (136-145); eGFR For Non-African Americans > 60 (> 60)
[2019-02-11 08:46] LABS: Platelet Estimate Normal (Normal)
[2019-02-11] MEDS: Gabapentin 100 MG CAPSULE PO SCH ×3 (09:13→20:40)
[2019-02-11] MEDS: Carbidopa/Levodopa ER 50/200 TABLET PO SCH ×2 (09:14→20:41)
[2019-02-11] MEDS: 0.45 % Sodium Chloride w/KCl 20 MEQ/1,000 ML MLS IVC SCH (11:34)
[2019-02-12] MEDS: 0.45 % Sodium Chloride w/KCl 20 MEQ/1,000 ML MLS IVC SCH (03:34)
[2019-02-12] MEDS: Ascorbic Acid 500 MG TABLET PO SCH (05:32)
[2019-02-12 06:55] LABS: Basophils % 0.2 %; Eosinophils # 0.1 K/mcL (0.0-0.6); Eosinophils % 2.1 %; Hematocrit 28.1 % (37.5-50.1); Hemoglobin 9.2 g/dL (12.9-16.9); Immature Granulocytes % 0.4 % (0-4); Lymphocytes # 0.9 K/mcL (0.6-4.6); Lymphocytes % 15.5 %; Mean Corpuscular HGB Conc 32.7 g/dL (31.6-35.5); Mean Corpuscular Hemoglobin 30.2 pg (28.0-33.3); Mean Corpuscular Volume 92.1 fL (83.0-100.0); Mean Platelet Volume 8.9 fL (9.4-12.4); Monocytes # 0.7 K/mcL (0.0-1.3); Monocytes % 12.1 %; Platelet Count 200 K/mcL (140-400); Red Blood Count 3.05 M/mcL (4.19-5.50); Red Cell Distribution Width 13.8 % (11.5-14.5); Segmented Neutrophils % 69.7 %
[2019-02-12 07:15] LABS: Alanine Aminotransferase 4 Units/L (7-52); Albumin 3.1 g/dL (3.5-5.7); Albumin/Globulin Ratio 0.9 (1.1-2.2); Alkaline Phosphatase 66 Units/L (34-104); Aspartate Amino Transferase 18 Units/L (13-39); BUN/Creatinine Ratio 27 (6-26); Bilirubin,Total 0.6 mg/dL (0.3-1.0); Blood Urea Nitrogen 13 mg/dL (8-23); Calcium 8.3 mg/dL (8.6-10.3); Carbon Dioxide 30 mEq/L (23-29); Chloride 96 mEq/L (98-107); Globulin 3.5 g/dL (2.4-3.5); Glucose 121 mg/dL (70-105); Osmolality,Calculated 275 (280-300); Potassium 3.5 mEq/L (3.5-5.1); Sodium 132 mEq/L (136-145); Total Protein 6.6 g/dL (6.4-8.9); eGFR For Non-African Americans > 60 (> 60)
[2019-02-12] MEDS: Gabapentin 100 MG CAPSULE PO SCH ×3 (09:50→21:51)
[2019-02-12] MEDS: Carbidopa/Levodopa ER 50/200 TABLET PO SCH ×2 (09:50→21:51)
--- NOTE | 2019-02-12 12:25 | Internal Med Progress Note ---
Date of Encounter: 02/12/19 Time of Encounter: 12:17 - Assessment and plan (1) Compression fx, lumbar spine Current Visit: No Status: Acute Assessment and plan: February 10. Continue PT and OT intervention. Qualifiers: Encounter type: initial encounter Lumbar vertebra fracture level: L2 Fracture type: closed Qualified Code(s): S32.020A - Wedge compression fracture of second lumbar vertebra, initial encounter for closed fracture (2) Type 2 diabetes mellitus Current Visit: No Status: Chronic Assessment and plan: February 10. Diet controlled. Hemoglobin A1c was 5.9% on 01/23/2019. Qualifiers: Diabetes mellitus skilled nursing insulin use: without skilled nursing use Diabetes mellitus complication status: with neurologic complications Diabetes mellitus complication detail: with polyneuropathy Qualified Code(s): E11.42 - Type 2 diabetes mellitus with diabetic polyneuropathy (3) Hypothyroidism Current Visit: No Status: Chronic Assessment and plan: February 10. Continue Synthroid 150 g daily. Qualifiers: Hypothyroidism type: unspecified Qualified Code(s): E03.9 - Hypothyroidism, unspecified (4) Anemia Current Visit: No Status: Chronic Assessment and plan: February 10. Continue ferrous sulfate with ascorbic acid and monitor CBC. February 12. Hemoglobin slightly improved at 9.2. Continue to monitor. Qualifiers: Anemia type: unspecified type Qualified Code(s): D64.9 - Anemia, unspecified (5) Parkinsons disease Current Visit: No Status: Chronic Assessment and plan: February 10. Continue Sinemet. (6) Dementia Current Visit: No Status: Chronic Assessment and plan: February 10. MMSE during previous recent swing bed stay showed score 19/30. B12 was normal at 589. Synthroid was increased due to elevated TSH. Qualifiers: Dementia type: unspecified type Dementia behavioral disturbance: without behavioral disturbance Qualified Code(s): F03.90 - Unspecified dementia without behavioral disturbance (7) Influenza A Current Visit: No Status: Acute Assessment and plan: February 10. Continue Tamiflu. - Subjective Interval history: February 10. He was hospitalized in acute-care at [facility] February 06- after returning to ER the day after swing bed discharge and was found to have influenza A. He made satisfactory progress with treatment but felt overall weak and wished to return to swing bed for additional therapy before returning home. He has no new complaints today. February 12. He has no new complaints. He denies pain. He states his appetite is poor. - Constitutional Vitals: Temp Pulse Resp BP Pulse Ox 98.4 F 67 15 147/79 98 02/12/19 07:14 02/12/19 07:14 02/12/19 07:14 02/12/19 07:14 02/12/19 07:14 Exam: He is resting comfortably in bed and appears in no acute distress. He coughed occasionally during the visit. His affect is overall cheerful. I reviewed his medications and lab results. Internal Medicine: Result - Labs CBC & Chem 7: 02/12/19 06:10 02/12/19 06:10 Labs: Short CBC 02/12/19 Range/Units 06:10 WBC 5.7 (4.3-11.1) K/mcL Hgb 9.2 L (12.9-16.9) g/dL Hct 28.1 L (37.5-50.1) % Plt Count 200 (140-400) K/mcL Neutrophils # 4.0 (1.6-8.9) K/mcL BMP 02/12/19 06:10 Sodium 132 L Potassium 3.5 Chloride 96 L Carbon Dioxide 30 H BUN 13 Creatinine 0.49 L Glucose 121 H Calcium 8.3 L Liver Function 02/12/19 Range/Units 06:10 Total Bilirubin 0.6 (0.3-1.0) mg/dL AST 18 (13-39) Units/L ALT 4 L (7-52) Units/L Alkaline Phosphatase 66 (34-104) Units/L Albumin 3.1 L (3.5-5.7) g/dL Consult Discharge Plan - Plan Referrals: Wilton Conde, [employer]CUE [Primary Care Provider] - 1 week
[2019-02-12] MEDS: Ondansetron ODT 4 MG TAB.RAPDIS SL PRN (22:01)
[2019-02-13] MEDS: Ascorbic Acid 500 MG TABLET PO SCH (05:44)
[2019-02-13] MEDS ORDERED: Mirtazapine 15 MG TABLET PO SCH (10:00)
[2019-02-13] MEDS: Gabapentin 100 MG CAPSULE PO SCH ×3 (10:14→20:34)
[2019-02-13] MEDS: Carbidopa/Levodopa ER 50/200 TABLET PO SCH ×2 (10:15→20:34)
[2019-02-13] MEDS: Ondansetron ODT 4 MG TAB.RAPDIS SL PRN (12:38)
[2019-02-13] MEDS: Mirtazapine 15 MG TABLET PO SCH (20:34)
[2019-02-14] MEDS: Ascorbic Acid 500 MG TABLET PO SCH (06:44)
[2019-02-14] MEDS: Gabapentin 100 MG CAPSULE PO SCH ×3 (08:24→20:36)
[2019-02-14] MEDS: Carbidopa/Levodopa ER 50/200 TABLET PO SCH ×2 (08:25→20:36)
--- NOTE | 2019-02-14 12:26 | Internal Med Progress Note ---
Date of Encounter: 02/14/19 Time of Encounter: 12:18 - Assessment and plan (1) Compression fx, lumbar spine Current Visit: No Status: Acute Assessment and plan: February 10. Continue PT and OT intervention. Qualifiers: Encounter type: initial encounter Lumbar vertebra fracture level: L2 Fracture type: closed Qualified Code(s): S32.020A - Wedge compression fracture of second lumbar vertebra, initial encounter for closed fracture (2) Type 2 diabetes mellitus Current Visit: No Status: Chronic Assessment and plan: February 10. Diet controlled. Hemoglobin A1c was 5.9% on 01/23/2019. Qualifiers: Diabetes mellitus fpc insulin use: without fpc use Diabetes mellitus complication status: with neurologic complications Diabetes mellitus complication detail: with polyneuropathy Qualified Code(s): E11.42 - Type 2 diabetes mellitus with diabetic polyneuropathy (3) Hypothyroidism Current Visit: No Status: Chronic Assessment and plan: February 10. Continue Synthroid 150 g daily. Qualifiers: Hypothyroidism type: unspecified Qualified Code(s): E03.9 - Hypothyroidism, unspecified (4) Anemia Current Visit: No Status: Chronic Assessment and plan: February 10. Continue ferrous sulfate with ascorbic acid and monitor CBC. February 12. Hemoglobin slightly improved at 9.2. Continue to monitor. February 14. Recheck labs in a.m. Qualifiers: Anemia type: unspecified type Qualified Code(s): D64.9 - Anemia, unsp ecified (5) Parkinsons disease Current Visit: No Status: Chronic Assessment and plan: February 10. Continue Sinemet. (6) Dementia Current Visit: No Status: Chronic Assessment and plan: February 10. MMSE during previous recent swing bed stay showed score 19/30. B12 was normal at 589. Synthroid was increased due to elevated TSH. Qualifiers: Dementia type: unspecified type Dementia behavioral disturbance: without behavioral disturbance Qualified Code(s): F03.90 - Unspecified dementia without behavioral disturbance (7) Influenza A Current Visit: No Status: Acute Assessment and plan: February 10. Continue Tamiflu. February 14. Discontinue Tamiflu. - Subjective Interval history: February 10. He was hospitalized in acute-care at [facility] February 3-5 after returning to ER the day after swing bed discharge and was found to have influenza A. He made satisfactory progress with treatment but felt overall weak and wished to return to swing bed for additional therapy before returning home. He has no new complaints today. February 12. He has no new complaints. He denies pain. He states his appetite is poor. February 14. He has no new complaints. He states his appetite is slightly improved. - Constitutional Vitals: Temp Pulse Resp BP Pulse Ox 98.3 F 80 18 158/97 96 02/14/19 07:09 02/14/19 07:09 02/14/19 07:09 02/14/19 07:09 02/14/19 07:09 Exam: He is resting comfortably in a chair at bedside and appears in no acute distress. He is eating lunch. His affect is bright and cheerful. I reviewed his medications and lab results. Internal Medicine: Result - Labs CBC & Chem 7: 02/12/19 06:10 02/12/19 06:10 Consult Discharge Plan - Plan Referrals: Wilton Conde, POWDER OPERATOR [Primary Care Provider] - 1 week
[2019-02-14] MEDS: Mirtazapine 15 MG TABLET PO SCH (20:36)
[2019-02-15 05:45] LABS: Basophils % 0.1 %; Eosinophils # 0.1 K/mcL (0.0-0.6); Eosinophils % 1.2 %; Hemoglobin 9.3 g/dL (12.9-16.9); Immature Granulocytes % 0.5 % (0-4); Lymphocytes # 1.1 K/mcL (0.6-4.6); Lymphocytes % 12.5 %; Mean Corpuscular HGB Conc 32.1 g/dL (31.6-35.5); Mean Corpuscular Hemoglobin 29.4 pg (28.0-33.3); Mean Corpuscular Volume 91.8 fL (83.0-100.0); Mean Platelet Volume 8.2 fL (9.4-12.4); Monocytes % 11.1 %; Neutrophils # 6.8 K/mcL (1.6-8.9); Platelet Count 330 K/mcL (140-400); Red Blood Count 3.16 M/mcL (4.19-5.50); Segmented Neutrophils % 74.6 %
[2019-02-15 06:06] LABS: BUN/Creatinine Ratio 28 (6-26); Blood Urea Nitrogen 15 mg/dL (8-23); Calcium 8.9 mg/dL (8.6-10.3); Carbon Dioxide 33 mEq/L (23-29); Chloride 96 mEq/L (98-107); Glucose 129 mg/dL (70-105); Osmolality,Calculated 285 (280-300); Potassium 3.4 mEq/L (3.5-5.1); Sodium 136 mEq/L (136-145); eGFR For Non-African Americans > 60 (> 60)
[2019-02-15] MEDS: Ascorbic Acid 500 MG TABLET PO SCH ×2 (06:15→06:24)
[2019-02-15] MEDS: Carbidopa/Levodopa ER 50/200 TABLET PO SCH ×2 (09:04→21:00)
[2019-02-15] MEDS: Gabapentin 100 MG CAPSULE PO SCH ×3 (09:04→21:01)
[2019-02-15] MEDS: Mirtazapine 15 MG TABLET PO SCH (21:00)
[2019-02-16] MEDS: Ascorbic Acid 500 MG TABLET PO SCH (06:20)
[2019-02-16] MEDS: Gabapentin 100 MG CAPSULE PO SCH ×3 (07:57→21:44)
[2019-02-16] MEDS: Carbidopa/Levodopa ER 50/200 TABLET PO SCH ×2 (07:57→21:44)
[2019-02-16] MEDS: Mirtazapine 15 MG TABLET PO SCH (21:44)
[2019-02-17] MEDS: Ascorbic Acid 500 MG TABLET PO SCH (06:12)
[2019-02-17] MEDS: Carbidopa/Levodopa ER 50/200 TABLET PO SCH ×2 (08:49→21:24)
[2019-02-17] MEDS: Acetaminophen 325 MG TABLET PO PRN (08:49)
[2019-02-17] MEDS: Gabapentin 100 MG CAPSULE PO SCH ×3 (08:49→21:26)
--- NOTE | 2019-02-17 13:31 | Internal Med Progress Note ---
Date of Encounter: 02/17/19 Time of Encounter: 13:24 - Assessment and plan (1) Compression fx, lumbar spine Current Visit: No Status: Acute Assessment and plan: February 10. Continue PT and OT intervention. Qualifiers: Encounter type: initial encounter Lumbar vertebra fracture level: L2 Fracture type: closed Qualified Code(s): S32.020A - Wedge compression fracture of second lumbar vertebra, initial encounter for closed fracture (2) Type 2 diabetes mellitus Current Visit: No Status: Chronic Assessment and plan: February 10. Diet controlled. Hemoglobin A1c was 5.9% on 01/23/2019. Qualifiers: Diabetes mellitus fdc insulin use: without fdc use Diabetes mellitus complication status: with neurologic complications Diabetes mellitus complication detail: with polyneuropathy Qualified Code(s): E11.42 - Type 2 diabetes mellitus with diabetic polyneuropathy (3) Hypothyroidism Current Visit: No Status: Chronic Assessment and plan: February 10. Continue Synthroid 150 g daily. Qualifiers: Hypothyroidism type: unspecified Qualified Code(s): E03.9 - Hypothyroidism, unspecified (4) Anemia Current Visit: No Status: Chronic Assessment and plan: February 10. Continue ferrous sulfate with ascorbic acid and monitor CBC. February 12. Hemoglobin slightly improved at 9.2. Continue to monitor. February 14. Recheck labs in a.m. February 17. Hemoglobin improved to 9.3 on 02/15/2019. Recheck labs in a.m. Qualifiers: Anemia type: unspecified type Qualified Code(s): D64.9 - Anemia, unspecified (5) Parkinsons disease Current Visit: No Status: Chronic Assessment and plan: February 10. Continue Sinemet. (6) Dementia Current Visit: No Status: Chronic Assessment and plan: February 10. MMSE during previous recent swing bed stay showed score 19/30. B12 was normal at 589. Synthroid was increased due to elevated TSH. Qualifiers: Dementia type: unspecified type Dementia behavioral disturbance: without behavioral disturbance Qualified Code(s): F03.90 - Unspecified dementia without behavioral disturbance (7) Influenza A Current Visit: No Status: Acute Assessment and plan: February 10. Continue Tamiflu. February 14. Discontinue Tamiflu. - Subjective Interval history: February 10. He was hospitalized in acute-care at [facility] February 3- after returning to ER the day after swing bed discharge and was found to have influenza A. He made satisfactory progress with treatment but felt overall weak and wished to return to swing bed for additional therapy before returning home. He has no new complaints today. February 12. He has no new complaints. He denies pain. He states his appetite is poor. February 14. He has no new complaints. He states his appetite is slightly improved. February 17. No new problems have arisen. - Constitutional Vitals: Temp Pulse Resp BP Pulse Ox 98.1 F 80 26 139/82 94 02/17/19 06:14 02/17/19 06:14 02/17/19 06:14 02/17/19 06:14 02/17/19 09:53 Exam: He is sleeping in bed and does not awaken to light touch or conversation with his . He does not appear to be in respiratory distress. Extremities show no pitting edema. I reviewed his medications and lab results. Internal Medicine: Result - Labs CBC & Chem 7: 02/15/19 05:35 02/15/19 05:35 Consult Discharge Plan - Plan Referrals: Wilton Conde, DECONTAMINATION WORKER [Primary Care Provider] - 1 week
[2019-02-17] MEDS: Mirtazapine 15 MG TABLET PO SCH (21:22)
[2019-02-18 05:50] LABS: Basophils # 0.1 K/mcL (0.0-0.2); Basophils % 0.5 %; Eosinophils # 0.2 K/mcL (0.0-0.6); Eosinophils % 2.3 %; Hemoglobin 10.2 g/dL (12.9-16.9); Immature Granulocytes % 0.8 % (0-4); Lymphocytes # 1.3 K/mcL (0.6-4.6); Lymphocytes % 12.3 %; Mean Corpuscular HGB Conc 31.9 g/dL (31.6-35.5); Mean Corpuscular Hemoglobin 29.7 pg (28.0-33.3); Monocytes # 0.9 K/mcL (0.0-1.3); Monocytes % 8.4 %; Neutrophils # 7.9 K/mcL (1.6-8.9); Platelet Count 469 K/mcL (140-400); Red Blood Count 3.44 M/mcL (4.19-5.50); Red Cell Distribution Width 14.1 % (11.5-14.5); Segmented Neutrophils % 75.7 %
[2019-02-18] MEDS: Ascorbic Acid 500 MG TABLET PO SCH (05:56)
[2019-02-18 06:15] LABS: BUN/Creatinine Ratio 30 (6-26); Blood Urea Nitrogen 16 mg/dL (8-23); Carbon Dioxide 31 mEq/L (23-29); Chloride 99 mEq/L (98-107); Glucose 107 mg/dL (70-105); Osmolality,Calculated 284 (280-300); Potassium 4.1 mEq/L (3.5-5.1); Sodium 136 mEq/L (136-145); eGFR For Non-African Americans > 60 (> 60)
[2019-02-18] MEDS ORDERED: *HR* HYDROcodone/Acet 5/325 mg TABLET PO PRN (06:48)
[2019-02-18] MEDS: Carbidopa/Levodopa ER 50/200 TABLET PO SCH ×2 (07:03→20:33)
[2019-02-18] MEDS: Gabapentin 100 MG CAPSULE PO SCH ×3 (07:05→20:33)
--- NOTE | 2019-02-18 17:10 | Internal Med Progress Note ---
Date of Encounter: 02/18/19 Time of Encounter: 17:00 - Assessment and plan (1) Compression fx, lumbar spine Current Visit: No Status: Acute Assessment and plan: February 10. Continue PT and OT intervention. Qualifiers: Encounter type: initial encounter Lumbar vertebra fracture level: L2 Fracture type: closed Qualified Code(s): S32.020A - Wedge compression fracture of second lumbar vertebra, initial encounter for closed fracture (2) Type 2 diabetes mellitus Current Visit: No Status: Chronic Assessment and plan: February 10. Diet controlled. Hemoglobin A1c was 5.9% on 01/23/2019. Qualifiers: Diabetes mellitus halfway insulin use: without halfway use Diabetes mellitus complication status: with neurologic complications Diabetes mellitus complication detail: with polyneuropathy Qualified Code(s): E11.42 - Type 2 diabetes mellitus with diabetic polyneuropathy (3) Hypothyroidism Current Visit: No Status: Chronic Assessment and plan: February 10. Continue Synthroid 150 g daily. Qualifiers: Hypothyroidism type: unspecified Qualified Code(s): E03.9 - Hypothyroidism, unspecified (4) Anemia Current Visit: No Status: Chronic Assessment and plan: February 10. Continue ferrous sulfate with ascorbic acid and monitor CBC. February 12. Hemoglobin slightly improved at 9.2. Continue to monitor. February 14. Recheck labs in a.m. February 17. Hemoglobin improved to 9.3 on 02/15/2019. Recheck labs in a.m. February 18. Hemoglobin further improved to 10.2. Continue ferrous sulfate with ascorbic acid. Qualifiers: Anemia type: unspecified type Qualified Code(s): D64.9 - Anemia, unspecified (5) Parkinsons disease Current Visit: No Status: Chronic Assessment and plan: February 10. Continue Sinemet. (6) Dementia Current Visit: No Status: Chronic Assessment and plan: February 10. MMSE during previous recent swing bed stay showed score 19/30. B12 was normal at 589. Synthroid was increased due to elevated TSH. Qualifiers: Dementia type: unspecified type Dementia behavioral disturbance: without behavioral disturbance Qualified Code(s): F03.90 - Unspecified dementia without behavioral disturbance (7) Influenza A Current Visit: No Status: Acute Assessment and plan: February 10. Continue Tamiflu. February 14. Discontinue Tamiflu. - Subjective Interval history: February 10. He was hospitalized in acute-care at [facility] [place] 3-5 after returning to ER the day after swing bed discharge and was found to have influenza A. He made satisfactory progress with treatment but felt overall weak and wished to return to swing bed for additional therapy before returning home. He has no new complaints today. February 12. He has no new complaints. He denies pain. He states his appetite is poor. February 14. He has no new complaints. He states his appetite is slightly improved. February 17. No new problems have arisen. February 18. He has no new complaints. He states his appetite is improving. He saw the spine surgeon in [place] earlier today and states he got a good report. - Constitutional Vitals: Temp Pulse Resp BP Pulse Ox 98.5 F 80 20 147/82 94 02/17/19 19:53 02/17/19 19:53 02/17/19 19:53 02/17/19 19:53 02/17/19 19:53 Exam: He is resting comfortably in bed and appears in no acute distress. His affect is bright and cheerful. Extremities show no edema. No obvious abnormality is seen on his lower spine. (Staff reported there was a possible "lump" noted earlier today). I reviewed his medications and lab results. Internal Medicine: Result - Labs CBC & Chem 7: 02/18/19 05:37 02/18/19 05:37 Labs: Short CBC 02/18/19 Range/Units 05:37 WBC 10.5 (4.3-11.1) K/mcL Hgb 10.2 L (12.9-16.9) g/dL Hct 32.0 L (37.5-50.1) % Plt Count 469 H (140-400) K/mcL Neutrophils # 7.9 (1.6-8.9) K/mcL BMP 02/18/19 05:37 Sodium 136 Potassium 4.1 Chloride 99 Carbon Dioxide 31 H BUN 16 Creatinine 0.54 L Glucose 107 H Calcium 9.0 Consult Discharge Plan - Plan Referrals: Wilton Conde, INTEGRATED LOGISTICS SUPPORT MANAGER [Primary Care Provider] - 1 week
[2019-02-18] MEDS: Mirtazapine 15 MG TABLET PO SCH (20:33)
[2019-02-19] MEDS: Ascorbic Acid 500 MG TABLET PO SCH (06:14)
[2019-02-19] MEDS: Gabapentin 100 MG CAPSULE PO SCH ×3 (09:26→20:11)
[2019-02-19] MEDS: Carbidopa/Levodopa ER 50/200 TABLET PO SCH ×2 (09:26→20:11)
[2019-02-19] MEDS: Mirtazapine 15 MG TABLET PO SCH (20:10)
[2019-02-20] MEDS: Ascorbic Acid 500 MG TABLET PO SCH (06:07)
[2019-02-20] MEDS: Carbidopa/Levodopa ER 50/200 TABLET PO SCH ×2 (10:53→21:01)
[2019-02-20] MEDS: Gabapentin 100 MG CAPSULE PO SCH ×3 (10:53→21:01)
--- NOTE | 2019-02-20 17:35 | Internal Med Progress Note ---
Date of Encounter: 02/20/19 Time of Encounter: 12:40 - Assessment and plan (1) Compression fx, lumbar spine Current Visit: No Status: Acute Assessment and plan: February 10. Continue PT and OT intervention. February 20. He denies any pain. Continue PT and OT intervention. Qualifiers: Encounter type: initial encounter Lumbar vertebra fracture level: L2 Fracture type: closed Qualified Code(s): S32.020A - Wedge compression fracture of second lumbar vertebra, initial encounter for closed fracture (2) Type 2 diabetes mellitus Current Visit: No Status: Chronic Assessment and plan: February 10. Diet controlled. Hemoglobin A1c was 5.9% on 01/23/2019. 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 Continue Synthroid 150 g daily. Qualifiers: Hypothyroidism type: unspecified Qualified Code(s): E03.9 - Hypothyroidism, unspecified (4) Anemia Current Visit: No Status: Chronic Assessment and plan: February 10. Continue ferrous sulfate with ascorbic acid and monitor CBC. February 12. Hemoglobin slightly improved at 9.2. Continue to monitor. February 14. Recheck labs in a.m. February 17. Hemoglobin improved to 9.3 on 02/15/2019. Recheck labs in a.m. February 18. Hemoglobin further improved to 10.2. Continue ferrous sulfate with ascorbic acid. Qualifiers: Anemia type: unspecified type Qualified Code(s): D64.9 - Anemia, unspecified (5) Parkinsons disease Current Visit: No Status: Chronic Assessment and plan: February 10. Continue Sinemet. (6) Dementia Current Visit: No Status: Chronic Assessment and plan: February 10. MMSE during previous recent swing bed stay showed score 19/30. B12 was normal at 589. Synthroid was increased due to elevated TSH. Qualifiers: Dementia type: unspecified type Dementia behavioral disturbance: without behavioral disturbance Qualified Code(s): F03.90 - Unspecified dementia with out behavioral disturbance (7) Influenza A Current Visit: No Status: Acute Assessment and plan: February 10. Continue Tamiflu. February 14. Discontinue Tamiflu. - Subjective Interval history: February 10. He was hospitalized in acute-care at [facility] February 3- after returning to ER the day after swing bed discharge and was found to have influenza A. He made satisfactory progress with treatment but felt overall weak and wished to return to swing bed for additional therapy before returning home. He has no new complaints today. February 12. He has no new complaints. He denies pain. He states his appetite is poor. February 14. He has no new complaints. He states his appetite is slightly improved. February 17. No new problems have arisen. February 18. He has no new complaints. He states his appetite is improving. He saw the spine surgeon in [place] earlier today and states he got a good report. February 20. He has no new complaints. He feels he is making progress overall and therapy. - Constitutional Vitals: Temp Pulse Resp BP Pulse Ox 97.9 F 69 20 92/70 98 02/20/19 08:04 02/20/19 08:04 02/20/19 08:04 02/20/19 08:04 02/20/19 08:04 Exam: He is sitting in a chair at bedside resting comfortably. His affect is overall cheerful. I reviewed his medications and lab results. Internal Medicine: Result - Labs CBC & Chem 7: 02/18/19 05:37 02/18/19 05:37 Consult Discharge Plan - Plan Referrals: Wilton Conde, [employer] [Primary Care Provider] - 1 week
[2019-02-20] MEDS: Mirtazapine 15 MG TABLET PO SCH (21:01)
[2019-02-21] MEDS: Ascorbic Acid 500 MG TABLET PO SCH (06:09)
[2019-02-21] MEDS: Carbidopa/Levodopa ER 50/200 TABLET PO SCH ×2 (08:32→21:24)
[2019-02-21] MEDS: Gabapentin 100 MG CAPSULE PO SCH ×3 (08:32→21:24)
[2019-02-21] MEDS: Mirtazapine 15 MG TABLET PO SCH (21:24)
[2019-02-22] MEDS: Ascorbic Acid 500 MG TABLET PO SCH (06:22)
[2019-02-22] MEDS: Gabapentin 100 MG CAPSULE PO SCH ×2 (09:59→21:35)
[2019-02-22] MEDS: Carbidopa/Levodopa ER 50/200 TABLET PO SCH ×2 (09:59→21:34)
--- NOTE | 2019-02-22 14:46 | Internal Med Progress Note ---
Date of Encounter: 02/22/19 Time of Encounter: 14:39 - Assessment and plan (1) Compression fx, lumbar spine Current Visit: No Status: Acute Assessment and plan: February 10. Continue PT and OT intervention. February 20. He denies any pain. Continue PT and OT intervention. February 22. He denies pain. Decrease gabapentin to twice a day. Qualifiers: Encounter type: initial encounter Lumbar vertebra fracture level: L2 Fracture type: closed Qualified Code(s): S32.020A - Wedge compression fracture of second lumbar vertebra, initial encounter for closed fracture (2) Type 2 diabetes mellitus Current Visit: No Status: Chronic Assessment and plan: February 10. Diet controlled. Hemoglobin A1c was 5.9% on 01/23/2019. 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 Continue Synthroid 150 g daily. Qualifiers: Hypothyroidism type: unspecified Qualified Code(s): E03.9 - Hypothyroidism, unspecified (4) Anemia Current Visit: No Status: Chronic Assessment and plan: February 10. Continue ferrous sulfate with ascorbic acid and monitor CBC. February 12. Hemoglobin slightly improved at 9.2. Continue to monitor. February 14. Recheck labs in a.m. February 17. Hemoglobin improved to 9.3 on 02/15/2019. Recheck labs in a.m. February 18. Hemoglobin further improved to 10.2. Continue ferrous sulfate with ascorbic acid. Qualifiers: Anemia type: unspecified type Qualified Code(s): D64.9 - Anemia, un specified (5) Parkinsons disease Current Visit: No Status: Chronic Assessment and plan: February 10. Continue Sinemet. (6) Dementia Current Visit: No Status: Chronic Assessment and plan: February 10. MMSE during previous recent swing bed stay showed score 19/30. B12 was normal at 589. Synthroid was increased due to elevated TSH. Qualifiers: Dementia type: unspecified type Dementia behavioral disturbance: without behavioral disturbance Qualified Code(s): F03.90 - Unspecified dementia without behavioral disturbance (7) Influenza A Current Visit: No Status: Acute Assessment and plan: February 10. Continue Tamiflu. February 14. Discontinue Tamiflu. - Subjective Interval history: February 10. He was hospitalized in acute-care at [facility] February 3- after returning to ER the day after swing bed discharge and was found to have influenza A. He made satisfactory progress with treatment but felt overall weak and wished to return to swing bed for additional therapy before returning home. He has no new complaints today. February 12. He has no new complaints. He denies pain. He states his appetite is poor. February 14. He has no new complaints. He states his appetite is slightly improved. February 17. No new problems have arisen. February 18. He has no new complaints. He states his appetite is improving. He saw the spine surgeon in [place] earlier today and states he got a good report. February 20. He has no new complaints. He feels he is making progress overall and therapy. February 22. He feels well and has no new complaints. - Constitutional Vitals: Temp Pulse Resp BP Pulse Ox 98.2 F 98 16 86/54 90 02/22/19 11:32 02/22/19 11:32 02/21/19 19:00 02/22/19 11:32 02/22/19 11:32 Exam: He is resting comfortably in a chair at bedside and appears in no acute distress. His affect is bright and cheerful. I reviewed his medications and lab results. Internal Medicine: Result - Labs CBC & Chem 7: 02/18/19 05:37 02/18/19 05:37 Consult Discharge Plan - Plan Referrals: Wilton Conde, [employer]NER [Primary Care Provider] - 1 week
[2019-02-22] MEDS: Mirtazapine 15 MG TABLET PO SCH (21:34)
[2019-02-23] MEDS: Ascorbic Acid 500 MG TABLET PO SCH (06:01)
[2019-02-23] MEDS: Carbidopa/Levodopa ER 50/200 TABLET PO SCH ×2 (08:37→21:12)
[2019-02-23] MEDS: Gabapentin 100 MG CAPSULE PO SCH ×2 (08:38→21:11)
[2019-02-23] MEDS: Mirtazapine 15 MG TABLET PO SCH (21:11)
[2019-02-24] MEDS: Ascorbic Acid 500 MG TABLET PO SCH (06:38)
[2019-02-24 06:58] LABS: Basophils # 0.1 K/mcL (0.0-0.2); Basophils % 0.6 %; Eosinophils # 0.3 K/mcL (0.0-0.6); Hematocrit 30.4 % (37.5-50.1); Hemoglobin 9.4 g/dL (12.9-16.9); Immature Granulocytes % 0.6 % (0-4); Lymphocytes # 1.1 K/mcL (0.6-4.6); Lymphocytes % 13.3 %; Mean Corpuscular HGB Conc 30.9 g/dL (31.6-35.5); Mean Corpuscular Hemoglobin 29.1 pg (28.0-33.3); Mean Corpuscular Volume 94.1 fL (83.0-100.0); Mean Platelet Volume 8.4 fL (9.4-12.4); Monocytes # 0.6 K/mcL (0.0-1.3); Monocytes % 7.4 %; Neutrophils # 6.2 K/mcL (1.6-8.9); Platelet Count 408 K/mcL (140-400); Red Blood Count 3.23 M/mcL (4.19-5.50); Red Cell Distribution Width 14.2 % (11.5-14.5); Segmented Neutrophils % 75.1 %
[2019-02-24 07:21] LABS: BUN/Creatinine Ratio 25 (6-26); Blood Urea Nitrogen 16 mg/dL (8-23); Calcium 9.2 mg/dL (8.6-10.3); Carbon Dioxide 33 mEq/L (23-29); Chloride 97 mEq/L (98-107); Glucose 116 mg/dL (70-105); Osmolality,Calculated 282 (280-300); Potassium 4.2 mEq/L (3.5-5.1); Sodium 135 mEq/L (136-145); eGFR For Non-African Americans > 60 (> 60)
[2019-02-24] MEDS: Gabapentin 100 MG CAPSULE PO SCH ×2 (09:49→21:47)
[2019-02-24] MEDS: Carbidopa/Levodopa ER 50/200 TABLET PO SCH ×2 (09:49→21:46)
[2019-02-24] MEDS: Mirtazapine 15 MG TABLET PO SCH (21:46)
[2019-02-25] MEDS: Ascorbic Acid 500 MG TABLET PO SCH (06:35)
[2019-02-25] MEDS: Carbidopa/Levodopa ER 50/200 TABLET PO SCH ×2 (08:33→21:10)
[2019-02-25] MEDS: Gabapentin 100 MG CAPSULE PO SCH ×2 (08:33→21:10)
--- NOTE | 2019-02-25 11:34 | Internal Med Progress Note ---
Date of Encounter: 02/25/19 Time of Encounter: 11:25 - Assessment and plan (1) Compression fx, lumbar spine Current Visit: No Status: Acute Assessment and plan: February 10. Continue PT and OT intervention. February 20. He denies any pain. Continue PT and OT intervention. February 22. He denies pain. Decrease gabapentin to twice a day. Qualifiers: Encounter type: initial encounter Lumbar vertebra fracture level: L2 Fracture type: closed Qualified Code(s): S32.020A - Wedge compression fracture of second lumbar vertebra, initial encounter for closed fracture (2) Type 2 diabetes mellitus Current Visit: No Status: Chronic Assessment and plan: February 10. Diet controlled. Hemoglobin A1c was 5.9% on 01/23/2019. 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 Continue Synthroid 150 g daily. Qualifiers: Hypothyroidism type: unspecified Qualified Code(s): E03.9 - Hypothyroidism, unspecified (4) Anemia Current Visit: No Status: Chronic Assessment and plan: February 10. Continue ferrous sulfate with ascorbic acid and monitor CBC. February 12. Hemoglobin slightly improved at 9.2. Continue to monitor. February 14. Recheck labs in a.m. February 17. Hemoglobin improved to 9.3 on 02/15/2019. Recheck labs in a.m. February 18. Hemoglobin further improved to 10.2. Continue ferrous sulfate with ascorbic acid. February 25. Hemoglobin decreased to 9.4 yesterday. Continue to monitor periodically. Qualifiers: Anemia type: unspecified type Qualified Code(s): D64.9 - Anemia, unspecified (5) Parkinsons disease Current Visit: No Status: Chronic Assessment and plan: February 10. Continue Sinemet. (6) Dementia Current Visit: No Status: Chronic Assessment and plan: February 10. MMSE during previous recent swing bed stay showed score 19/30. B12 was normal at 589. Synthroid was increased due to elevated TSH. Qualifiers: Dementia type: unspecified type Dementia behavioral disturbance: without behavioral disturbance Qualified Code(s): F03.90 - Unspecified dementia without behavioral disturbance (7) Weakness Current Visit: Yes Status: Chronic Assessment and plan: February 25. He has had ongoing PT and OT since readmission. Therapists feel he is not progressing enough to return to independent living at his [facility] apartment. I shared this with the patient, and caregiver. They chose [facility] for longer-term care needs. - Subjective Interval history: February 10. He was hospitalized in acute-care at [facility] February 3- after returning to ER the day after swing bed discharge and was found to have influenza A. He made satisfactory progress with treatment but felt overall weak and wished to return to swing bed for additional therapy before returning home. He has no new complaints today. February 12. He has no new complaints. He denies pain. He states his appetite is poor. February 14. He has no new complaints. He states his appetite is slightly improved. February 17. No new problems have arisen. February 18. He has no new complaints. He states his appetite is improving. He saw the spine surgeon in [place] earlier today and states he got a good report. February 20. He has no new complaints. He feels he is making progress overall and therapy. February 22. He feels well and has no new complaints. February 25. He has no new complaints. - Constitutional Vitals: Temp Pulse Resp BP Pulse Ox 98.2 F 72 16 112/69 99 02/25/19 08:28 02/25/19 08:28 02/25/19 08:28 02/25/19 08:28 02/25/19 08:28 Exam: He is sitting in a chair at bedside resting comfortably. His affect is bright and cheerful. I reviewed his medications and lab results. Internal Medicine: Result - Labs CBC & Chem 7: 02/24/19 06:23 02/24/19 06:23 Consult Discharge Plan - Plan Referrals: Wilton Conde, BIN WORKER [Primary Care Provider] - 1 week
[2019-02-25] MEDS: Mirtazapine 15 MG TABLET PO SCH (21:10)
[2019-02-26] MEDS: Ascorbic Acid 500 MG TABLET PO SCH (06:17)
[2019-02-26 07:16] VITALS: BP 114/72
[2019-02-26] MEDS: Gabapentin 100 MG CAPSULE PO SCH (08:22)
[2019-02-26] MEDS: Carbidopa/Levodopa ER 50/200 TABLET PO SCH (08:23)
--- NOTE | 2019-02-26 11:09 | Discharge Summary ---
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 insulin use: without alf use Diabetes mellitus complication status: with neurologic complications Diabetes mellitus complication detail: with polyneuropathy Qualified Code(s): E11.42 - Type 2 diabetes mellitus with diabetic polyneuropathy (3) Hypothyroidism Priority: Secondary Status: Chronic Qualifiers: Hypothyroidism type: unspecified Qualified Code(s): E03.9 - Hypothyroidism, unspecified (4) Anemia Priority: Secondary Status: Chronic Qualifiers: Anemia type: unspecified type Qualified Code(s): D64.9 - Anemia, unspecified (5) Parkinsons disease Priority: Secondary Status: Chronic (6) Dementia Priority: Secondary Status: Chronic Qualifiers: Dementia type: unspecified type Dementia behavioral disturbance: without behavioral disturbance Qualified Code(s): F03.90 - Unspecified dementia withou t behavioral disturbance (7) Weakness Priority: Secondary Status: Chronic Hospital course: Mr. Francis is a 89 year old male who was hospitalized in acute-care at [facility] February 06- after returning to ER the day after swing bed discharge and was found to have influenza A. He made satisfactory progress with treatment but felt overall weak and wished to return to swing bed for additional therapy before returning home. He continued with PT and OT intervention in swing bed. He made slight progress. It was felt he could not have care needs met adequately in the home environment. Arrangements were complete on February 26 for him to be discharged to [facility] for ongoing rehabilitation therapy. Hemoglobin A1c was 5.9% on 01/23/2019 consistent with DM 2 diet controlled Synthroid 150 g daily will be continued at the [facility]. Ferrous sulfate with ascorbic acid will be continued at the SNF. He will follow with me at the [facility]. - Time Spent with Patient Total time spent providing and/or coordinating discharge services: - Discharge Medications Prescriptions: New Ferrous Sulfate 325 mg PO 0630 tablet Mirtazapine [Remeron] 7.5 mg PO HS tablet Continue Clopidogrel [Plavix] 75 mg PO DAILY Acetaminophen [Tylenol] 650 mg PO Q6HR PRN 30 Days #90 tablet PRN Reason: Fever DULoxetine [Cymbalta] 20 mg PO DAILY Albuterol Neb [Proventil Neb] 2.5 mg IH Q2H PRN inhsol PRN Reason: Shortness Of Breath/Wheezing traZODone [TraZODone] 50 mg PO HS PRN tablet PRN Reason: Insomnia Levothyroxine [Synthroid] 150 mcg PO 0630 tablet Ferrous Sulfate 325 mg PO DAILY tablet Carbidopa/Levodopa ER 50/200 [Sinemet ER 50-200 Tab] 0.5 each PO BID tablet.er Ascorbic Acid [Vitamin C] 500 mg PO DAILY tablet Discontinued Triamcinolone 1 appl TP AD PRN PRN Reason: Rash Gabapentin [Neurontin] 100 mg PO TID Atorvastatin Calcium [Lipitor] 20 mg PO QPM Oseltamivir [Tamiflu] 75 mg PO BID capsule GuaiFENesin/Dextromethorphan [Robitussin/Dm] 10 ml PO Q6HR udc Home Medications: Clopidogrel [Plavix] 75 mg PO DAILY 11/16/17 [History] Acetaminophen [Tylenol] 650 mg PO Q6HR PRN 30 Days #90 tablet 07/15/18 [Rx] DULoxetine [Cymbalta] 20 mg PO DAILY 01/14/19 [History] Albuterol Neb [Proventil Neb] 2.5 mg IH Q2H PRN inhsol 02/08/19 [Rx] Ascorbic Acid [Vitamin C] 500 mg PO DAILY tablet 02/08/19 [Rx] Carbidopa/Levodopa ER 50/200 [Sinemet ER 50-200 Tab] 0.5 each PO BID tablet.er 02/08/19 [Rx] Ferrous Sulfate 325 mg PO DAILY tablet 02/08/19 [Rx] Levothyroxine [Synthroid] 150 mcg PO 0630 tablet 02/08/19 [Rx] traZODone [TraZODone] 50 mg PO HS PRN tablet 02/08/19 [Rx] Ferrous Sulfate 325 mg PO 0630 tablet 02/26/19 [Rx] Mirtazapine [Remeron] 7.5 mg PO HS tablet 02/26/19 [Rx] Allergies/Adverse Reactions: Allergy/AdvReac Type Severity Reaction Status Date / Time No Known Allergies Allergy Verified 11/16/17 14:33 Date of admission: 02/08/19 13:07 Primary care physician: Wilton Conde CNP Consults: 02/08/19 12:51 Consult to Mutuel Clerk [CONS] Routine Reason for SW Consult: discharge planning 02/08/19 13:05 Consult to Physical Therapy [CONS] Routine Comment: Evaluate, develop and implement POC Reason for Consult: weakness Does patient have active BEDREST order?: No Is patient medically & hemodynamically stable?: Yes Patient assessed for mobility or mobilized this visit?: No OT [Consult to Occupational Therapy] [CONS] Routine Comment: Evaluate, develop and implement POC Reason for Consult: weakness Does patient have active BEDREST order?: No Is patient medically & hemodynamically stable?: Yes Patient assessed for mobility or mobilized this visit?: No - Constitutional Vitals: Temp Pulse Resp BP Pulse Ox 98.5 F 88 18 114/72 96 02/26/19 07:14 02/26/19 07:14 02/26/19 07:14 02/26/19 07:14 02/26/19 07:14 - Patient Status Disposition: Transfer SNF - Discharge Instructions - Diet and Activity Activity: as per physical therapy Diet: other (Advanced soft diet)
--- NOTE | 2019-02-26 11:17 | Physician Discharge Referral ---
ExtendedCare Referral Info Transfer To: [facility] Provider in Charge: Josh Provider in Charge after Transfer: PCP (Josh) - Diagnosis (1) Compression fx, lumbar spine Priority: Primary Status: Acute (2) Type 2 diabetes mellitus Priority: Secondary Status: Chronic (3) Hypothyroidism Priority: Secondary Status: Chronic (4) Anemia Priority: Secondary Status: Chronic (5) Parkinsons disease Priority: Secondary Status: Chronic (6) Dementia Priority: Secondary Status: Chronic (7) Weakness Priority: Secondary Status: Chronic Prognosis: Fair Aware of Diagnosis: Patient, Family Aware of Prognosis: Patient, Family - Transfer Medications Home Medications: Clopidogrel [Plavix] 75 mg PO DAILY 11/16/17 [History] Acetaminophen [Tylenol] 650 mg PO Q6HR PRN 30 Days #90 tablet 07/15/18 [Rx] DULoxetine [Cymbalta] 20 mg PO DAILY 01/14/19 [History] Albuterol Neb [Proventil Neb] 2.5 mg IH Q2H PRN inhsol 02/08/19 [Rx] Ascorbic Acid [Vitamin C] 500 mg PO DAILY tablet 02/08/19 [Rx] Carbidopa/Levodopa ER 50/200 [Sinemet ER 50-200 Tab] 0.5 each PO BID tablet.er 02/08/19 [Rx] Ferrous Sulfate 325 mg PO DAILY tablet 02/08/19 [Rx] Levothyroxine [Synthroid] 150 mcg PO 0630 tablet 02/08/19 [Rx] traZODone [TraZODone] 50 mg PO HS PRN tablet 02/08/19 [Rx] Ferrous Sulfate 325 mg PO 0630 tablet 02/26/19 [Rx] Mirtazapine [Remeron] 7.5 mg PO HS tablet 02/26/19 [Rx] Allergies/Adverse Reactions: Allergy/AdvReac Type Severity Reaction Status Date / Time No Known Allergies Allergy Verified 11/16/17 14:33 - Respiratory Orders Oxygen / L per min (2 L per minute by nasal cannula when necessary to keep sat greater than 90%.) Smoking Cessation: Smoking cessation has been advised. For more information, call the [place] Tobacco Quit Line at 4-554-BTMS-NOW. - Lab Orders Lab Orders: Other (include drug levels w/frequency) (CBC with differential, BMP, BN peptide in 1 week and monthly. TSH every 3 months starting May 2019- coordinate with other labs. Iron profile, ferritin in 1 week) - Advance Directives Code Status: DNR-Comfort Care - Mobility Orders Other (Ambulate with walker and assistance.) - Rehabiliation Orders Rehab Potential: Fair Rehab Orders: Evaluation for Physical Therapy, Evaluation for Occupational Therapy CERTIFICATION: I certify that the transfer of the above named patient to an Extended Care Facility is necessary for the continuing treatment of the diagnosis listed. The above information is true and accurate reflection of patient's current condition. Confidential - Redisclosure prohibited without a patient's written consent.
== END 2019-02-26 14:51 | DRG 561 ==
LOC: INPPIK 13:07
PROVIDERS: ADMIT Internal Medicine; ATTEND Internal Medicine